=== PATIENT | female | born 1990 | race Caucasian/White ===

== ENCOUNTER 2017-01-31 22:10 | Day surgery (SDC) | payer OTHER ==
[2017-01-31 22:47] VITALS: BMI 25.7
--- NOTE | 2017-01-31 23:09 | PDOC.LDHP ---
Labor and Delivery H&P Chief complaint: abdominal pain HPI: 27 yo comes in with abdominal and pelvic pain. Says she was working today and went to reach for some glasses and states they were heavy. Started to get abdominal pain in the umbilical area. Also started to get sharp pain in her pelvic area. Took tylenol and the pain did not improve much. Was worried about baby, said she couldn't feel baby move with the pain. Current gestational age (weeks): 28 (1) Due date: 04/24/17 Dating criteria: last menstrual period Grav: 3 Para: 1 (1011) OB History Details: Prior Current complications: none Abnormal US findings: No (Bed side BPP 8/8, NST reactive, ) Current medications: pre-ina vitamins Previous surgical history: low tranverse CS Social history: none - Physical Exam Vital signs reviewed and normal: yes General: NAD Heart: RRR Lungs: nonlabored breathing Abdomen: other (Mildly tender to palpatin in RUQ, LUQ) Extremeties: no edema FHT: category 1 [place] contractions every: none - OB Labs Blood type: A RH: positive Antibody Screen: negative HIV: negative RPR: negative HEPSAg: negative GBS: unknown Urine drug screen: not done Rubella: non-immune - Assessment Strained muscle and Round ligament pain -Give 1000 mg of tylenol and hydroxizine. -FHT baseline 145. NST reactive -AMELIE 7.5. Bedside BPP 8/8. Good movement. Reassured mom likely muskoskeltal pain in nature -Recommend to continue taking Tylenol and avoid strenuous movements - Plan Plan: other (Discharge home) <Keron Garcia - Last Filed: 01/31/17 23:26> <Mami Shaffer - Last Filed: 02/01/17 16:03> Allergies/Adverse Reactions: Allergies Allergy/AdvReac Type Severity Reaction Status Date / Time No Known Drug Allergies Allergy Verified 01/31/17 22:48 Attending Addendum - Attending Addendum I personally discussed the management with Dr. Garcia and Dr. Puentes I agree with the History, Examination, Assessment and Plan documented above with any addition or exceptions noted below. MSK pain. Precautions discussed. Patient reassured with bedside sono. Borderline AMELIE. Would repeat in clinic. Anne <Mami Shaffer - Last Filed: 02/01/17 16:03>
[2017-01-31] MEDS ORDERED: hydrOXYzine Pamoate 25 mg Capsule PO SCH (23:15)
[2017-01-31] MEDS ORDERED: Acetaminophen 500 MG TAB PO SCH (23:15)
[2017-02-01] MEDS ORDERED: FLU VACC QS2017-18 36 mo. & older 0.5 ML SYRINGE IM ONE (09:00)
== END 2017-01-31 23:35 | disposition home or self-care (01) ==
LOC: L&D/OP 22:10
PROVIDERS: ATTEND Student in an Organized Health Care Education/Training Program
DX: O99.89 Other specified diseases and conditions complicating pregnancy, childbirth and the puerperium (principal); R10.2 Pelvic and perineal pain; Z79.899 Other long term (current) drug therapy; Z3A.28 28 weeks gestation of pregnancy; Z98.891 History of uterine scar from previous surgery
CPT/HCPCS: 76815; Q0177

== ENCOUNTER 2017-02-11 18:22 | Observation (INO) | payer OTHER ==
[2017-02-11 19:20] VITALS: BMI 26.7
[2017-02-11] MEDS ORDERED: traMADol HCl 50 MG TAB PO SCH (20:45)
[2017-02-11 21:39] LABS: #Eosinphils 0.1 thou/uL (0.0-0.7); #Lymphocytes 2.8 thou/uL (1.20-3.40); #Monocytes 0.6 thou/uL (0.11-0.59); #Neutrophils 11.6 thou/uL (1.40-6.50); %Basophils 0.3 % (0.0-1.0); %Eosinophils 0.6 % (0.0-10.0); %Lymphocytes 18.3 % (21.0-51.0); %Monocytes 3.8 % (0.0-10.0); Hematocrit 35.9 % (36.0-47.0); Mean Platelet Volume 6.9 fL (7.4-10.4); Red Blood Cell (RBC) Count 3.85 mill/uL (4.20-5.40)
[2017-02-11 22:01] LABS: ALT (SGPT) 16 U/L (8-55); AST (SGOT) 16 U/L (5-34); Alkaline Phosphatase 96 U/L (40-150); Anion Gap 17 mmol/L (10-20); BUN (Urea Nitrogen) 5 mg/dL (7.0-18.7); Bilirubin, Total 0.2 mg/dL (0.2-1.2); Calc. Creatinine Clearance 172 mL/min (70-130); Calcium 8.9 mg/dL (7.8-10.44); Carbon Dioxide 18 mmol/L (22-29); Chloride 107 mmol/L (98-107); Estimated GFR-MDRD Greater than 90; Globulin 3.4 g/dL (2.4-3.5); Protein, Total 6.9 g/dL (6.0-8.3)
[2017-02-11 22:20] LABS: Bilirubin Negative (Negative); Blood, Urine Negative (Negative); Glucose, Urine (Dipstick) Negative (Negative); Ketone, Urine Trace mg/dL (Negative); Nitrite Negative (Negative); Protein, Urine (Dipstick) Negative (Neg-Trace); Urobilinogen 0.2 mg/dL (0.2-1.0)
[2017-02-11 22:22] LABS: Bacteria/HPF None Seen HPF (None Seen); Hyaline Casts/LPF 0-3 HYALINE CAST LPF (0-3 Hyaline); RBC/HPF 0-3 HPF (0-3); Squamous Epithelial 0-3 HPF (0-3); WBC/HPF 0-3 HPF (0-3)
--- NOTE | 2017-02-11 23:39 | ULT ---
ABDOMINAL ULTRASOUND 02/11/17 INDICATION: patient with pain. TECHNIQUE: Khoury-scale ultrasound evaluation of the liver, gallbladder, spleen, pancreas, common bile duct, kidn eys, abdominal aorta, and inferior vena cava (IVC). FINDINGS: No acute gallbladder pathology. Imaged portions of the liver are unremarkable. There is no hydroneph rosis of the kidneys. Spleen is unremarkable. Within the low abdomen at reported site of patient's p ain, the underlying uterus reveals a thin linear lesion of decreased echogenicity demonstrating sono graphic appearance of edema within the uterine wall. This is of indeterminate etiology. IMPRESSION: 1. Thin linear hypoechoic region of the uterine wall indicative of edema of indeterminate etiol ogy. Recommend clinical correlation in this regard and as necessary imaging followup may be obtained . 2. No acute gallbladder pathology. POS: [facility]
[2017-02-12] MEDS ORDERED: Ondansetron HCl/PF 4 MG/2 ML Vial IVP PRN (01:25)
[2017-02-12] MEDS: Lactated Ringer's 500 ML IV SCH ×3 (01:57→04:54)
[2017-02-12] MEDS: Lactated Ringer's 1,000 ML IV SCH ×2 (05:39→07:07)
[2017-02-12 06:07] VITALS: TEMP 98
--- NOTE | 2017-02-12 06:15 | PDOC.FM ---
- Subjective Subjective: at 29.5w presented with acute worsening of periumbilical pain and vaginal discharge. An area of edema is noted within uterine wall associated with abdominal pain. The significance of this is unknown. Today the reporting worsening pain. Has been given stadol for pain. FHT were wnl with no evident ctx, no longer hooked up to monitoring. Denies N/V, diarrhea, constipation , and fevers. Does report recent viral illness with fever, congestion, poor appetite, and some diarrhea. - Objective MAR Reviewed: Yes Vital Signs & Weight: Vital Signs (12 hours) Temp Pulse Resp BP 02/12/17 06:00 98.0 F 90 18 118/57 L 02/12/17 02:25 98.1 F 84 20 02/12/17 02:03 98.1 F 84 20 118/66 Weight Admit Weight 70.76 kg Weight 70.76 kg Result Diagrams: 02/11/17 21:25 02/11/17 21:25 Radiology: Abdominal U/S: no gallbladder pathology, thin layer of edema within the uterine wall of unknown significance. <Valeria Guzmán - Last Filed: 02/12/17 08:47> - Objective Vital Signs & Weight: Vital Signs (12 hours) Temp Pulse Resp BP 02/12/17 08:45 98.0 F 76 20 02/12/17 07:20 98.0 F 76 20 127/59 L 02/12/17 06:00 98.0 F 90 18 118/57 L 02/12/17 02:25 98.1 F 84 20 02/12/17 02:03 98.1 F 84 20 118/66 Weight Admit Weight 70.76 kg Weight 70.76 kg Result Diagrams: 02/12/17 11:35 02/11/17 21:25 <Rodolfo Lees - Last Filed: 02/12/17 13:00> Phys Exam - Physical Examination Lying awake in pain, not moving much. Respiratory: no wheezing, no rales, no rhonchi, clear to auscultation bilateral Cardiovascular: RRR, no significant murmur Gravid, tender to touch in periumbilical and R and L LQ, + heel jar + psoas sign Musculoskeletal: pulses present, edema present (trace) Neurological: non-focal Psychiatric: A&O x 3 Deviation from normal: anxious appearing, frequent crying Skin: no rash <Valeria Guzmán - Last Filed: 02/12/17 08:47> Dx/Plan (1) Abdominal pain affecting Code(s): O26.899 - [facility] RELATED CONDITIONS, UNSPECIFIED TRIMESTER; R10.9 - UNSPECIFIED ABDOMINAL PAIN Status: Acute Plan: Unsure of the cause of abdominal pain. Could be related to finding on U/S of edema within the uterus. - GC/C negative - VP3 negative - abdominal u/s without evidence of appendicitis or gallbladder pathology - consider MRI to r/o more serious cause such as appendicitis. - continue pain medication and fluid hydration. (2) Status: Acute Plan: Plan for expectant management at this time. No concerns at this time. <Valeria Guzmán - Last Filed: 02/12/17 08:47> Attending Addendum - Attending Addendum I personally evaluated the patient and discussed the management with Drs. Guzmán and Javon. I agree with the History, Examination, Assessment and Plan documented above with any addition or exceptions noted below. S: Ms. Leslie was seen at approx 09:45 am. She relates that her pain is located just above and below the umbilicus. 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 In the past 4 days it is worse and has become severe to 11/10 on admission but after having Stadol 30 min prior to my exam it is 7.5. She is Very worried about the pain and concerned that there is something wrong, that her fetus may also be experiencing similar pain, and that although the doctors have offered possible explanations she has not been told exactly what the pain is caused by. She endorses being under financial and personal stress, but beleives she is overall in a good relationship with her fiance, and denies feeling depressed, hopeless or helpless. Does have some difficulty with worry and sleep. Has continued to work until she had to leave work yesterday due to the pain. Pain is worse with movement such as getting up from lying to sitting and with walking. Denies dysuria, did have some pink tinge when she wiped yesterday after having the cath specimen drawn. No fever. No hx of abdominal injury. No N,V, Diarrhea. O: VS Stable/normal. Alert Oriented x 4. Lungs: CTA, Cor: RRR, no murmur. Abdomen: gravid. External monitors in place just above and below/over the umbilicus, and do not appear to be bothering her. She occasionally presses over the tender area showing where she hurts without causing apparent pain to herself. Bowel sounds are present. No rash, erythema, or lesions noted. She has moderate to exquisite tenderness over the entire periumbilical area. She endorses periumbilical pain with testing pelvic shake, ileopsoas, internal obturator and heel tap signs. No CVATenderness. Lab: CBC WNL. WBC 34144 yesterday down to 11,400 today. ESR 25, UA -WNL. Sonogram of Abdomen Normal GB, Liver, and Bilateral kidneys. Ob Sono normal WNL. There is a linear sonolucent/hypoechogenic area in the anterior uterine wall described as possibly consistent with edema. 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 I have requested the resident staff to formally consult Ob/Laborist, Dr. Marcial, for second opinion and to obtain an MRI to evaluate abdomen, abdominal wall and prior uterine incision for any concerns. She expressed anxiety about being claustrophobic and having difficulty the prior abdominal MRI she had done 3 months ago due to the claustrophobia. We will premedicate with diphenhydramine. In view of the otherwise essentially normal findings and pending the results of her MRI and Ob consult I am hopeful that with reassurance, rest, avoiding bending, twisting, stooping and lifting, and being off work for a week or so she may improve and have adequate pain control. I have discussed the case with Drs. Guzmán, and Javon, and with Dr. Josafat Lima who is faculty attending biofuels plant operations engineer this afternoon. [facility] <Rodolfo Lees - Last Filed: 02/12/17 13:00>
[2017-02-12 07:27] VITALS: BP 127/59
[2017-02-12] MEDS ORDERED: FLU VACC QS2017-18 36 mo. & older 0.5 ML SYRINGE IM ONE (09:00)
[2017-02-12] MEDS ORDERED: diphenhydrAMINE 12.5 MG/5 ML UDCUP PO SCH (10:30)
[2017-02-12 11:42] LABS: #Eosinphils 0.1 thou/uL (0.0-0.7); #Lymphocytes 2.1 thou/uL (1.20-3.40); #Monocytes 0.4 thou/uL (0.11-0.59); #Neutrophils 8.9 thou/uL (1.40-6.50); %Basophils 0.1 % (0.0-1.0); %Eosinophils 0.6 % (0.0-10.0); %Lymphocytes 18.2 % (21.0-51.0); %Monocytes 3.3 % (0.0-10.0); Hematocrit 33.8 % (36.0-47.0); Mean Platelet Volume 7.1 fL (7.4-10.4); Red Blood Cell (RBC) Count 3.56 mill/uL (4.20-5.40); White Blood Cell (WBC) Count 11.4 thou/uL (4.8-10.8)
--- NOTE | 2017-02-12 12:48 | PDOC.APC ---
Antepartum Consult OBGYN CONSULT Date seen: 02/12/17, consult complete at 1300: Location: [facility]. Requesting MD: FM program (Jennifer Guzmán, with FM). Reason for consult: 25 week LAP, NOS. HPI: GWYN DE LA CRUZ is a 27 year old female at [25] gestational weeks and 5 days. She is a at 25 weeks 5 days who is being cared for by the family medicine residents for a complaint of umbilical pain. She was also seen with this November with a negative workup. That included an MRI. She had similar symptoms in January again with negative workup. She states that she has continued abdominal pain now worse for the last three days. OBGYN has been asked to see the patient for evaluation. Allergy: none Past surgeries: C section x1 Physical exam: patient currently in MRI so deferred. FHTs were normal last check. Cervix: per FM team. Laboratory data: initial WBC 15 now 11, CMP normal. Pelvic ultrasound unremarkable. Impression: 25 week and 5 days prior C section x1 with non specific abdominal discomfort. No evidence abruption or compromise. MRI pending. Plan: 1. No evidence of pre term labor at this time. 2. Clinical suspicion for APPY is low. Continue to follow for now. 3. Possible prior section adhesion causing discomfort. 4. Case D/W DR Guzmán in person.
--- NOTE | 2017-02-12 13:21 | MRI ---
MRI OF THE ABDOMEN: Comparison: 11-28-16, abdominal ultrasound 02-11-17, 11-27-16 History: Periumbilical abdominal pain and tenderness in a female. Possible uterine wall abn ormality seen on prior ultrasound. Technique: Multiplanar, multisequence MR images were obtained of the abdomen without contrast. FINDINGS: A fetus is seen within the uterus in cephalic presentation. No obvious anomaly is identified. The placenta is along the right posterolateral aspect of the uterus and extends up to the fundus. Th ere is no evidence of placenta previa. The uterine wall demonstrates normal signal intensity without evidence of uterine wall thinning or dehiscense. Both ovaries are normal in appearance and have small follicles. The previously seen T2 signal along the right axis of the uterus likely represented a follicle within the patient's right ovary. The amanda endix is displaced above the uterus and is normal in appearance without surrounding high T2 signal t o suggest acute appendicitis. No pelvic adenopathy is seen. No marrow signal abnormality is present. IMPRESSION: 1. No evidence of acute appendicitis. 2. No evidence of uterine wall thinning or dehiscense. POS: [facility]
--- NOTE | 2017-02-12 13:38 | PDOC.APC ---
Antepartum Consult 02/12/17 at 1330: CONSULT CORRECTION: GWYN DE LA CRUZ is a 27 year old female at [29 W 6D] gestational weeks. This is a corrected report. Patient back from MRI. Patient seen by me with MD Arielle in room. PE: I examined the patient at 1330..cervix is closed/thick/high station. No VB or ROM noted. NST just started again. Positive accel with exam. CORRECTION: Patient at 29 weeks and 5 days, not 25 weeks and 5 days as previously written. I was informed earlier that her EGA was 25 weeks, but now see that she is 29 weeks 6 days. Impression/Plan: 29 weeks 6 days, LAP NOS. 1. BPP sono 2. No evidence of labor 3. Await MRI.
--- NOTE | 2017-02-12 14:34 | PDOC.EVN ---
Event Note - Event Note Event Note: MRI negative. BPP 09/11, -2 for breathing. NST reactive. Overall, 11/13. Plan to manage pain outpatient. Likely related to adhesive disease from prior C- section. <Dee Aguayo - Last Filed: 02/12/17 14:31> - Event Note Event Note: 02/12/17 at 1430: FACULTY NOTE: MRI without abnormalities. No evidence appy or gross uterine disease. NST reactive, makes the total BPP 11/13. As no evidence of PTL, abruption, or infectious etiology, SC for outpatient care. D/W residents. <Stefano Marcial - Last Filed: 02/12/17 14:38>
[2017-02-12] MEDS ORDERED: Acetaminophen 500 MG TAB PO PRN (14:36)
[2017-02-12] MEDS ORDERED: Acetaminophen 500 MG TAB PO SCH (14:45)
--- NOTE | 2017-02-12 17:23 | ULT ---
LIMITED OBSTETRICAL ULTRASOUND 02/12/17 INDICATION: Biophysical profile; maternal abdominal pain. FINDINGS: There is a single live intrauterine gestation in vertex presentation. Cardiac activity is noted at 1 33 beats per minute. Placenta is posterior and fundal in location without evidence of previa. AMELIE is noted at 12.3. The visualized bladder, three vessel cord, and heart appear within normal limits. The average gestat ional age by ultrasound is 29 weeks, 6 days. Estimated due date 04/24/17. The biophysical profile was 6 out of 8 with 0 out of 2 reported for breathing by the technicia ac. IMPRESSION: Biophysical profile score is 6 out of 8. Findings were reported by Dr. Marcial by the home theatre technician at the time of the exam. POS: [facility]
--- NOTE | 2017-02-13 12:36 | DIS-2 ---
ADMISSION DATE: 02/11/2017 DISCHARGE DATE: 02/12/2017 RESIDENT: Dr. Valeria Guzmán. ADMITTING ATTENDING: Dr. Rodolfo Lees. DISCHARGE ATTENDING: Dr. Rodolfo Lees. CONSULTATIONS: Dr. Stefano Marcial, OB-CORPORATE CONSULTANT. PROCEDURES: 1. Abdominal ultrasound, which revealed a thin linear hypoechoic region of the uterine wall indicat patrick of edema of indeterminate etiology with normal appearing gallbladder pathology, normal tilt appe aring kidneys and spleen. 2. Abdominal MRI, which revealed no evidence of acute appendicitis and no evidence of uterine wall thinning or dehiscence. 3. A biophysical profile ultrasound, which was 09/11, -2 for breathing. PRIMARY DIAGNOSIS: Musculoskeletal adhesive disease. SECONDARY DIAGNOSIS: Anxiety. DISCHARGE MEDICATIONS: 1. Tylenol 650 mg q.8 hours p.r.n. pain. 2. vitamins. DISCONTINUED MEDICATIONS: None. HISTORY OF PRESENT ILLNESS AND HOSPITAL COURSE: Patient is a 27-year-old G3, P1-0-1-1 at 29 and 5 w eeks by LMP, consistent with a first trimester ultrasound, who came to the ED for periumbilical abdo issac pain onset three weeks ago, but recently worsened within the last 3 days rating her pain at 10 /10. Patient exam revealed some acute abdomen findings, although patient was very anxious and that may have contributed to interpretation of pain. An ultrasound was performed, which revealed a thin layer of edema in the uterine wall of indeterminate significance in the area of her reported pain. An abdominal MRI was done to evaluate for appendicitis, a uterine dehiscence and abdominal wall path ology, which was negative except for those mentioned above. Patient has a prior history of C-sectio n and it is thought that with her describing the pain as a ripping or stretching sensation, most lik brianna cause of her pain is adhesive disease from prior . Labs on this admission were within normal limits including a CBC, CMP, UA and chlamydia and gonorrhea. Patient had reported slight pin k discharge along with the abdominal pain as mentioned above. Chlamydia and gonorrhea were negative . Also, patient was checked for cervical dilation and was found to be closed. No contractions pick ed up on tocolytics or tocometer. Patient was very anxious and tearful throughout her stay and each conversation and it is thought that likely level of anxiety is compounding her pain. After all lab work was found to be negative as well as imaging and well being was established via BPP and N ST and continuous heart monitoring. DISPOSITION: Patient was discharged home in stable condition with close followup. DISCHARGE INSTRUCTIONS: 1. Location: Home. 2. Diet: Regular. 3. Activity: As tolerated. 4. Follow up with Dae Camilo M.D. in one day.
== END 2017-02-12 16:42 | disposition home or self-care (01) ==
LOC: L&D/OP 18:22 → L&D 02-12 02:15
PROVIDERS: ADMIT Family Medicine; ATTEND Family Medicine
DX: O99.89 Other specified diseases and conditions complicating pregnancy, childbirth and the puerperium (principal); N73.6 Female pelvic peritoneal adhesions (postinfective); O99.343 Other mental disorders complicating pregnancy, third trimester; F41.9 Anxiety disorder, unspecified; Z3A.29 29 weeks gestation of pregnancy; Z79.899 Other long term (current) drug therapy; Z98.890 Other specified postprocedural states; Z87.891 Personal history of nicotine dependence
CPT/HCPCS: 74181; 76700; 76815; 76819; 80053; 81001; 85025; 85652; 87480; 87491; 87510; 87591; 87660; 96360; 96361; 96372; G0378; J0595

== ENCOUNTER 2017-04-03 17:18 | Day surgery (SDC) | payer OTHER ==
[2017-04-03 18:03] VITALS: BMI 37.3
[2017-04-03 18:04] VITALS: BP 134/76; TEMP 99.2
[2017-04-03 19:09] LABS: #Lymphocytes 2.1 thou/uL (1.20-3.40); #Monocytes 0.6 thou/uL (0.11-0.59); #Neutrophils 10.2 thou/uL (1.40-6.50); %Basophils 0.1 % (0.0-1.0); %Eosinophils 0.3 % (0.0-10.0); %Lymphocytes 16.1 % (21.0-51.0); %Monocytes 4.9 % (0.0-10.0); %Neutrophils 78.6 % (42.0-75.0); Hemoglobin 12.3 g/dL (12.0-16.0); Mean Corpuscular HGB CONC 34.1 g/dL (32.0-36.0); Mean Corpuscular Hemoglobin 31.8 pg (27.0-31.0); Mean Corpuscular Volume 93.3 fl (81.0-99.0); Mean Platelet Volume 7.8 fL (7.4-10.4); Platelet Count 154 thou/uL (130-400); RBC Distribution Width 12.5 % (11.5-14.5); Red Blood Cell (RBC) Count 3.86 mill/uL (4.20-5.40)
[2017-04-03 19:25] LABS: ALT (SGPT) 8 U/L (8-55); AST (SGOT) 13 U/L (5-34); Albumin 3.5 g/dL (3.5-5.0); Alkaline Phosphatase 121 U/L (40-150); Anion Gap 13 mmol/L (10-20); BUN (Urea Nitrogen) 6 mg/dL (7.0-18.7); Bilirubin, Total 0.2 mg/dL (0.2-1.2); Calc. Creatinine Clearance 241 mL/min (70-130); Calcium 9.3 mg/dL (7.8-10.44); Carbon Dioxide 20 mmol/L (22-29); Chloride 108 mmol/L (98-107); Estimated GFR-MDRD Greater than 90; Globulin 3.1 g/dL (2.4-3.5); Glucose 78 mg/dL (70-105); LDH 154 U/L (125-220); Potassium 3.6 mmol/L (3.5-5.1); Protein, Total 6.6 g/dL (6.0-8.3); Sodium 137 mmol/L (136-145); Uric Acid 3.4 mg/dL (2.6-6.0)
[2017-04-03 19:59] LABS: Creatinine, Urine 26.65 mg/dL (47-110); Protein, Urine Random Quant Less than 10 mg/dL
--- NOTE | 2017-04-03 20:58 | PDOC.EVN ---
Event Note - Event Note Event Note: Attending H&P I personally evaluated the patient and discussed the management with Dr. Silverio. I agree with the History, Examination, Assessment and Plan documented above with any addition or exceptions noted below. Pre-eclampsia workup is negative.
[2017-04-04] MEDS ORDERED: FLU VACC QS2017-18 36 mo. & older 0.5 ML SYRINGE IM ONE (09:00)
== END 2017-04-03 20:54 | disposition home or self-care (01) ==
LOC: L&D/OP 17:18
PROVIDERS: ATTEND Family Medicine
DX: O13.3 Gestational [pregnancy-induced] hypertension without significant proteinuria, third trimester (principal); O26.03 Excessive weight gain in pregnancy, third trimester; Z3A.36 36 weeks gestation of pregnancy; Z79.899 Other long term (current) drug therapy; Z98.890 Other specified postprocedural states; Z87.891 Personal history of nicotine dependence
CPT/HCPCS: 36415; 80053; 82570; 83615; 84156; 84550; 85025; 99283

== ENCOUNTER 2017-04-05 20:42 | Day surgery (SDC) | payer OTHER ==
[2017-04-05 21:12] VITALS: BMI 36.8
--- NOTE | 2017-04-05 22:35 | PDOC.LDHP ---
Labor and Delivery H&P Chief complaint: other HPI: Patient is a 27yo at 37.2 by 6.0w u/s with recent hx of elevated pressures and negative PreE workup. This evening patient reports 3 pressures greater than 140 systolic at home and new onset GOULD since noon today that has not been responsive to extra strength tylenol. +FM, no LOF, no ctx, no VB. Patient denies abdominal pain. Patient reports blurred vision. Current gestational age (weeks): 37 (37.2) Due date: 04/24/16 Dating criteria: first trimester ultrasound Grav: 3 Para: 1 OB History Details: Csx x1 for failure to progress. Current complications: none Abnormal US findings: No Current medications: pre-ina vitamins, other (Dulcolax, topical psoriasis medication) Previous surgical history: low tranverse CS Social history: none - Physical Exam Vital signs reviewed and normal: yes Abnormal vital signs: isolated BP 143/86 General: NAD Heart: RRR Lungs: CTAB Abdomen: NTTP Extremeties: trace edema FHT: category 1 [place] contractions every: none - OB Labs Blood type: A RH: positive Antibody Screen: negative HIV: negative RPR: negative HEPSAg: negative 1 hour GCT: negative GBS: negative Rubella: immune - Assessment Elevated Blood pressure - r/o preeclampsia with CBC, CMP, urine protein and creatinine - monitor vs - patient has already had 3g tylenol today, will give Fioricet for pain - no signs of labor - likely d/c home if labs negative. - Plan Plan: observation in L&D <Valeria Guzmán - Last Filed: 04/05/17 22:33> <Lowell Givens - Last Filed: 04/06/17 00:20> Allergies/Adverse Reactions: Allergies Allergy/AdvReac Type Severity Reaction Status Date / Time No Known Drug Allergies Allergy Verified 01/31/17 22:48 Attending Addendum - Attending Addendum I personally evaluated the patient and discussed the management with the resident team. I agree with and repeated the History, Examination, Assessment and Plan documented above with any addition or exceptions noted below. Tension type headache for today, band/vice like. Not unilateral/throbbing. She is unsure if she has any scotoma/spots, although denies anything recently. No KAREN/RUQ pain. Exam unremarkable, NAD, CTAB, RRR, minimal edema, DTRs 2+ without clonus. Labs negative for preE workup. Fioricet with improvement and patient wishes to go home. Discussed OBT warnings. Ok for discharge with follow up next week. <Lowell Givens - Last Filed: 04/06/17 00:20>
[2017-04-05 22:48] LABS: #Eosinphils 0.1 thou/uL (0.0-0.7); #Lymphocytes 2.1 thou/uL (1.20-3.40); #Monocytes 0.8 thou/uL (0.11-0.59); #Neutrophils 8.2 thou/uL (1.40-6.50); %Basophils 0.2 % (0.0-1.0); %Eosinophils 0.7 % (0.0-10.0); %Neutrophils 73.1 % (42.0-75.0); Hemoglobin 12.4 g/dL (12.0-16.0); Mean Corpuscular HGB CONC 33.8 g/dL (32.0-36.0); Mean Corpuscular Hemoglobin 31.6 pg (27.0-31.0); Mean Corpuscular Volume 93.6 fl (81.0-99.0); Mean Platelet Volume 7.5 fL (7.4-10.4); Platelet Count 152 thou/uL (130-400); RBC Distribution Width 12.7 % (11.5-14.5); Red Blood Cell (RBC) Count 3.92 mill/uL (4.20-5.40); White Blood Cell (WBC) Count 11.2 thou/uL (4.8-10.8)
[2017-04-05] MEDS ORDERED: Fioricet 325/50/40 mg Tablet PO SCH (22:54)
[2017-04-05 23:01] LABS: Creatinine, Urine 30.21 mg/dL (47-110); Protein, Urine Random Quant Less than 10 mg/dL
[2017-04-05 23:09] LABS: ALT (SGPT) 8 U/L (8-55); AST (SGOT) 11 U/L (5-34); Albumin 3.3 g/dL (3.5-5.0); Alkaline Phosphatase 119 U/L (40-150); Anion Gap 12 mmol/L (10-20); BUN (Urea Nitrogen) 7 mg/dL (7.0-18.7); Bilirubin, Total 0.2 mg/dL (0.2-1.2); Calc. Creatinine Clearance 233 mL/min (70-130); Carbon Dioxide 18 mmol/L (22-29); Chloride 109 mmol/L (98-107); Estimated GFR-MDRD Greater than 90; Globulin 3.1 g/dL (2.4-3.5); Glucose 96 mg/dL (70-105); Potassium 3.8 mmol/L (3.5-5.1); Protein, Total 6.4 g/dL (6.0-8.3); Sodium 135 mmol/L (136-145)
[2017-04-06] MEDS ORDERED: FLU VACC QS2017-18 36 mo. & older 0.5 ML SYRINGE IM ONE (09:00)
== END 2017-04-06 00:54 | disposition home or self-care (01) ==
LOC: L&D/OP 20:42
PROVIDERS: ATTEND Family Medicine
DX: O99.89 Other specified diseases and conditions complicating pregnancy, childbirth and the puerperium (principal); R03.0 Elevated blood-pressure reading, without diagnosis of hypertension; Z3A.37 37 weeks gestation of pregnancy; Z79.899 Other long term (current) drug therapy; Z98.890 Other specified postprocedural states; Z87.891 Personal history of nicotine dependence
CPT/HCPCS: 36415; 80053; 82570; 84156; 85025; 99284

== ENCOUNTER 2017-04-20 05:39 | Inpatient (IN) | payer OTHER ==
[2017-04-20 06:09] VITALS: BMI 35.6
[2017-04-20] MEDS: Lactated Ringer's 1,000 ML IV SCH ×3 (06:15→13:15)
[2017-04-20] MEDS ORDERED: Promethazine HCl 25 MG/ML VIAL IM PRN ×2 (06:28→07:44)
[2017-04-20] MEDS ORDERED: Acetaminophen 500 MG TAB PO PRN (06:28)
[2017-04-20] MEDS ORDERED: Ondansetron HCl/PF 4 MG/2 ML Vial IVP PRN ×3 (06:28→07:44)
[2017-04-20] MEDS ORDERED: Bicitra 30 ML UDCUP PO SCH (06:30)
[2017-04-20] MEDS ORDERED: CEFAZOLIN/Water 2 GM/20 ML SYRINGE SLOW IVP SCH (06:30)
[2017-04-20 06:37] LABS: Hemoglobin 12.9 g/dL (12.0-16.0); Mean Corpuscular Hemoglobin 31.3 pg (27.0-31.0); Mean Corpuscular Volume 91.9 fl (81.0-99.0); Mean Platelet Volume 7.6 fL (7.4-10.4); Platelet Count 168 thou/uL (130-400); RBC Distribution Width 12.9 % (11.5-14.5); Red Blood Cell (RBC) Count 4.13 mill/uL (4.20-5.40); White Blood Cell (WBC) Count 13.2 thou/uL (4.8-10.8)
--- NOTE | 2017-04-20 06:51 | PDOC.LDHP ---
Labor and Delivery H&P Chief complaint: scheduled section HPI: 27 yo female is here for repeat . Reports being a little bit anxious. Reports having mildly elevated blood pressures last night. Denies any headaches, abnormal swelling. Denies any changes in vision. Denies bleeding, loss of fluid or pain. Reports occasional contractions but there is no pattern. Current gestational age (weeks): 39 (3 days) Due date: 04/24/17 Dating criteria: last menstrual period, first trimester ultrasound Grav: 3 Para: 1 OB History Details: none Current complications: none Abnormal US findings: No Past Medical History: None Current medications: pre- vitamins Previous surgical history: low tranverse CS, other (Humerus repair) Allergies/Adverse Reactions: Allergies Allergy/AdvReac Type Severity Reaction Status Date / Time No Known Drug Allergies Allergy Verified 01/31/17 22:48 Social history: none - Physical Exam Vital signs reviewed and normal: yes General: NAD, resting Heart: RRR Lungs: nonlabored breathing Abdomen: NTTP Extremeties: no edema FHT: category 1, variability present - OB Labs Blood type: A RH: positive Antibody Screen: negative HIV: negative RPR: negative HEPSAg: negative 1 hour GCT: negative GBS: negative Urine drug screen: negative Rubella: immune - Assessment L&D Assessment: scheduled repeat section - Plan Plan: admit to L&D, to OR for section, observation in L&D, informed consent obtained, anesthesia consult for pain management -: 27 yo female here for Repeat . No complications. Anesthesia consulted. Initial labs drawn. Category 1 strip. Moderate variability. No other concerns or complications at this time.
[2017-04-20] MEDS ORDERED: PHENYLEPHRINE-NS 100 MCG/ML 10 ML SYRINGE ONE ×3 (07:12→14:18)
[2017-04-20] MEDS ORDERED: Ketorolac Tromethamine 30 MG/ML VIAL ONE ×2 (07:12→14:18)
[2017-04-20] MEDS ORDERED: Oxytocin 10 UNITS/ML VIAL ONE (07:12)
[2017-04-20] MEDS ORDERED: ePHEDrine/0.9% NaCl/PF SYRINGE 50 mg/10 ml ONE (07:12)
[2017-04-20] MEDS ORDERED: Dexamethasone 4 mg/ml Vial ONE (07:12)
[2017-04-20] MEDS ORDERED: Ondansetron HCl/PF 4 MG/2 ML Vial ONE ×2 (07:12→14:18)
[2017-04-20] MEDS ORDERED: Morphine PF 1 MG/ML SYR ONE (07:13)
[2017-04-20 07:27] LABS: HBSAg Index 0.12 S/CO (0-0.99); Hep B Surf Ag Non-Reactive S/CO (NonReactive)
[2017-04-20 07:28] LABS: Syphilis Antibody Nonreactive (Nonreactive); Syphilis Antibody Index 0.07 S/CO (<1.00 Non-Reactive)
[2017-04-20] MEDS ORDERED: diphenhydrAMINE 50 MG/ML VIAL IVP PRN (07:44)
[2017-04-20] MEDS ORDERED: Promethazine HCl 25 MG SUPP PR PRN (07:44)
[2017-04-20] MEDS ORDERED: Naloxone HCl 0.4 mg/ml Vial IV PRN (07:44)
[2017-04-20] MEDS ORDERED: HYDROmorphone 2 MG/ML VIAL SLOW IVP PRN (07:44)
[2017-04-20] MEDS ORDERED: Naloxone HCl 0.4 mg/ml Vial IVP PRN ×2 (07:44)
[2017-04-20] MEDS ORDERED: Eucerin (Mineral Oil/Petrolatum,White) 30 gm Jar TOP PRN (07:44)
[2017-04-20] MEDS ORDERED: Ketorolac Tromethamine 30 MG/ML VIAL IVP SCH (07:45)
[2017-04-20] MEDS ORDERED: Communication Order-Pharmacy FS SCH (07:45)
[2017-04-20] MEDS ORDERED: Fentanyl 100 MCG/2 ML VIAL ONE (08:20)
--- NOTE | 2017-04-20 09:58 | OP-2 ---
DATE OF PROCEDURE: 04/20/2017 RESIDENT SURGEON: Dae Camilo M.D. ERGONOMICS CONSULTANT SURGEON: Dee Aguayo M.D. ATTENDING SURGEON: Bret Lima M.D. PREOPERATIVE DIAGNOSES: 1. Term intrauterine at 39 weeks 3 days. 2. Previous . 3. Excessive weight gain during . POSTOPERATIVE DIAGNOSES: 1. Term intrauterine , delivered. 2. Viable female . 3. Repeat x1. 4. Excessive weight gain during . ANESTHESIA: Spinal. INDICATIONS: Ms. Carmen Leslie is a 27-year-old G3, P1-0-1-1 at 39 weeks and 3 days, presented for elective repeat . PROCEDURE IN DETAIL: Informed consent was obtained after risks, benefits, and alternatives were explained. Preoperative antibiotics Keflex 2 grams IV were given. The patient was taken to the operating room and spinal anesthesia was initiated. The patient was prepped and draped in the usual sterile fashion. A Pfannenstiel incision was made with scalpel and carried down to the level of the fascia which was sharply nicked. The fascia was extended bilaterally with Olguin scissors in a curvilinear fashion. The inferior and superior edges were elevated with Nel clamps and bluntly and sharply dissected away from the rectus muscle. The peritoneum was entered bluntly and retracted manually. Bladder blade was placed. Bladder flap was created with Metzenbaum scissors. Low transverse score was made with a clean scalpel. The uterus was entered bluntly with the amniotic sac intact. Amniotic sac was ruptured with Allis clamp and clear fluid was noted. The hysterotomy was extended manually in a caudal cranial fashion. Head was elevated from the hysterotomy and the infant was delivered easily with fundal pressure at 8:08 a.m. on 04/20/2017. Grossly normal viable female was noted. Cord was clamped and cut and was handed to the awaiting nursery team. Attention was then turned to the uterus. The placenta was manually extracted. The uterus was then curetted with a dry lap. Hysterotomy was closed using a #1 Monocryl suture in the running locking fashion. Hemostasis was noted after closure. The uterus was placed back in the abdomen and the hysterotomy was again inspected. The hysterotomy was noted to be hemostatic; however, the inferior edge of the bladder flap had a small bleeding vessel along the left edge. A iebowt-vx-vwfya suture using 3-0 chromic was placed along the bleeding edge. Additional bleeders were stopped with Bovie cautery. The hysterotomy was visualized a final time and noted to be hemostatic. Fascia was closed with a #1 Vicryl suture in the running nonlocking fashion. Subcutaneous tissue was closed with 3 simple interrupted sutures using 2-0 plain gut. Skin was closed using a running subcuticular 4-0 Monocryl suture. Dermabond was placed over the incision. Counts were correct x3. The patient tolerated the procedure well and was sent to after routine recovery and care. ESTIMATED BLOOD LOSS: 750 mL. COMPLICATIONS: None. SPECIMEN: Cord blood sent for blood type. FINDINGS: Grossly normal female infant born at 0808 hours on 04/20/2017 with Apgars of 9 and 9 at 1 and 5 minutes respectively. Grossly normal intact placenta with a 3-vessel cord. DRAINS: Bob catheter with clear urine. Dr. Bret Lima was present for the entire procedure. ADRIEL
[2017-04-20] MEDS ORDERED: Meperidine HCl/PF 25 MG/ML VIAL ONE ×2 (10:05→11:11)
[2017-04-20] MEDS: Meperidine HCl/PF 25 MG/ML VIAL SLOW IVP PRN ×2 (10:06→11:12)
[2017-04-20] MEDS ORDERED: HYDROmorphone 0.5 MG/0.5 ML SYRINGE SLOW IVP PRN (10:47)
[2017-04-20] MEDS ORDERED: Prenatal Vitamin 1 TAB PO SCH ×2 (11:24→11:45)
[2017-04-20] MEDS ORDERED: Lanolin Ointment 7 GM TUBE TOP PRN (11:24)
[2017-04-20] MEDS ORDERED: HYDROcodone/Acetaminophen 5/325 mg Tablet PO PRN ×3 (11:24→20:00)
[2017-04-20] MEDS ORDERED: Methylergonovine 0.2 MG/ML VIAL IM PRN (11:24)
[2017-04-20] MEDS ORDERED: Acetaminophen 1,000 MG in Premix Bag 1 BAG IVPB SCH (13:00)
[2017-04-20] MEDS ORDERED: Dexamethasone 20 MG/5 ML VIAL ONE (14:18)
[2017-04-20] MEDS: Ibuprofen 800 MG TAB PO SCH (14:20)
[2017-04-20] MEDS: Ketorolac Tromethamine 30 MG/ML VIAL IVP PRN ×2 (14:20→20:34)
[2017-04-20] MEDS: Morphine PF 1 MG/ML SYR IVP PRN ×4 (15:34→23:59)
[2017-04-20] MEDS: Simethicone Chewable 80 MG TAB PO PRN (17:16)
[2017-04-21] MEDS: HYDROcodone/Acetaminophen 5/325 mg Tablet PO PRN ×4 (00:31→12:52)
[2017-04-21] MEDS: Ibuprofen 800 MG TAB PO SCH ×4 (04:33→20:46)
[2017-04-21 05:34] LABS: Hemoglobin 11.4 g/dL (12.0-16.0); Mean Corpuscular HGB CONC 33.7 g/dL (32.0-36.0); Mean Corpuscular Hemoglobin 31.8 pg (27.0-31.0); Mean Corpuscular Volume 94.1 fl (81.0-99.0); Mean Platelet Volume 7.6 fL (7.4-10.4); Platelet Count 142 thou/uL (130-400); RBC Distribution Width 12.8 % (11.5-14.5); Red Blood Cell (RBC) Count 3.59 mill/uL (4.20-5.40); White Blood Cell (WBC) Count 12.6 thou/uL (4.8-10.8)
[2017-04-21] MEDS: Prenatal Vitamin 1 TAB PO SCH (08:59)
--- NOTE | 2017-04-21 09:08 | PDOC.PP ---
Post Progress Note Post Day #: 2 Subjective: Pain well controlled. Eating small amounts. has not tried walking yet. Reports small rash on right ring finger. States she has history of shingles but denies neuropathy. PO intake tolerated: yes Flatus: yes Ambulation: no Vital Signs (12 hours) Temp Pulse Resp BP 04/21/17 07:59 98.1 F 75 20 119/56 L 04/21/17 07:45 98.1 F 75 20 04/21/17 04:30 98.1 F 74 18 127/61 04/21/17 04:00 98.3 F 78 20 04/21/17 01:15 98.8 F 80 18 131/62 04/21/17 00:15 98.3 F 78 20 Weight Weight 94.347 kg - Physical Examination General: NAD Cardiovascular: no m/r/g, RRR Respiratory: clear to auscultation bilaterally, non-labored breathing Abdominal: + bowel sounds, lochia, no distention, appropriately TTP Fundus firm & at: umbilicus Extremities: negative homans (B) Skin: CS incision dry & intact Deviation from normal: small rash on distal right 4th digit. dorsal aspect. uticarial, no drainage Neurological: no gross focal deficits Psychiatric: A&Ox3, normal affect Result Diagrams: 04/21/17 05:16 Additional Labs: Post Labs Blood Type A POSITIVE 04/20/17 06:18 Hep Bs Antigen Non-Reactive S/CO (NonReactive) 04/20/17 06:18 (1) Status post repeat low transverse section Code(s): Z98.891 - HISTORY OF UTERINE SCAR FROM PREVIOUS SURGERY Status: Acute Comment: Post op day 1. delivered at 39.3 wk via elective repeat LTCS. pain now well controlled. Plan to remove quinn today and encourage ambulation. VSS. appropriate decrease in H&H. continue expectant management. (2) Status: Acute QualifierTitle: Weeks of gestation: 39 weeks Qualified Code(s): Z3A.39 - 39 weeks gestation of (3) Rash and nonspecific skin eruption Code(s): R21 - RASH AND OTHER NONSPECIFIC SKIN ERUPTION Status: Acute Comment: history of shingles but no neuropathic symptoms. will continue to monitor. consistent with contact dermatitis. <Dae Camilo - Last Filed: 04/21/17 09:07> Vital Signs (12 hours) Temp Pulse Resp BP 04/21/17 11:39 98.2 F 72 18 121/69 04/21/17 07:59 98.1 F 75 20 119/56 L 04/21/17 07:45 98.1 F 75 20 04/21/17 04:30 98.1 F 74 18 127/61 04/21/17 04:00 98.3 F 78 20 04/21/17 01:15 98.8 F 80 18 131/62 04/21/17 00:15 98.3 F 78 20 Weight Weight 94.347 kg Result Diagrams: 04/21/17 05:16 Additional Labs: Post Labs Blood Type A POSITIVE 04/20/17 06:18 Hep Bs Antigen Non-Reactive S/CO (NonReactive) 04/20/17 06:18 <Bret Lima - Last Filed: 04/21/17 11:42> Attending Addendum - Attending Addendum I personally evaluated the patient and discussed the management with Dr. Camilo. I agree with the History, Examination, Assessment and Plan documented above with any addition or exceptions noted below. <Bret Lima - Last Filed: 04/21/17 11:42>
[2017-04-21] MEDS ORDERED: HYDROcodone/Acetaminophen 5/325 mg Tablet PO PRN (15:01)
[2017-04-21] MEDS ORDERED: Ketorolac Tromethamine 30 MG/ML VIAL IVP SCH (17:45)
[2017-04-21] MEDS ORDERED: HYDROcodone/Acetaminophen 5/325 mg Tablet PO SCH ×2 (18:00→20:30)
[2017-04-21] MEDS ORDERED: Acyclovir 800 mg Tablet PO SCH (20:30)
[2017-04-21] MEDS: Simethicone Chewable 80 MG TAB PO PRN (20:49)
--- NOTE | 2017-04-21 22:02 | PDOC.EVN ---
Event Note - Event Note Event Note: Patient complained on rash on R ring finger. I went to look at it and it appears vesicular with an erythematous base consistent with localized Varicella Zoster vs Herpes Simplex Virus, currently suspect Varicella Zoster. Will treat with Acyclovir. Spoke to Dr. Hoskins with neonatology and he recommended to cover the lesions with bandaid and then glove and that it would be okay in that case for the to be in the room and to continue to breastfeed. He said there was no indication for the Varicella immunoglobulin at this time. The Infection Control Handbook for the hospital was consistent with the recommendation to cover the lesions and use standard precautions. Will consider culturing the lesions in the morning to confirm the organism. Will watch the closely. <Jana Kenyon - Last Filed: 04/21/17 21:55> - Event Note Event Note: Attending addendum: I saw and examined the patient and agree with the above plan. <Lowell Givens - Last Filed: 04/21/17 23:10>
[2017-04-22] MEDS ORDERED: HYDROcodone/Acetaminophen 10/325 mg Tablet PO SCH (03:00)
[2017-04-22] MEDS: Acyclovir 800 mg Tablet PO SCH ×3 (03:10→13:14)
[2017-04-22] MEDS: Ibuprofen 800 MG TAB PO SCH ×2 (06:10→13:13)
[2017-04-22 08:01] VITALS: BP 114/59; TEMP 98.2
[2017-04-22] MEDS: HYDROcodone/Acetaminophen 5/325 mg Tablet PO PRN ×2 (08:51→13:13)
[2017-04-22] MEDS: Prenatal Vitamin 1 TAB PO SCH (08:51)
--- NOTE | 2017-04-22 08:51 | PDOC.PP ---
Post Progress Note Post Day #: 2 Subjective: Patient had upsetting night with pain and new onset rash. Feeling better this morning. Pain controlled. Stressed importance of performing tasks in short intervals with time to rest between. Breast feeding well. PO intake tolerated: yes Flatus: yes Ambulation: yes Vital Signs (12 hours) Temp Pulse Resp BP 04/22/17 08:01 98.2 F 81 20 114/59 L 04/22/17 00:30 98.7 F 68 20 131/81 04/21/17 20:50 98.4 F 88 20 123/73 Weight Weight 94.347 kg - Physical Examination General: NAD Cardiovascular: no m/r/g, RRR Respiratory: clear to auscultation bilaterally, non-labored breathing Abdominal: + bowel sounds, lochia, no distention, appropriately TTP Fundus firm & at: umbilicus Extremities: negative homans (B) Skin: CS incision dry & intact Deviation from normal: herpatic appearing rash on right ring finger. covered with bandaid/glove Neurological: no gross focal deficits Psychiatric: A&Ox3, normal affect Result Diagrams: 04/21/17 05:16 Additional Labs: Post Labs Blood Type A POSITIVE 04/20/17 06:18 Hep Bs Antigen Non-Reactive S/CO (NonReactive) 04/20/17 06:18 (1) Status post repeat low transverse section Code(s): Z98.891 - HISTORY OF UTERINE SCAR FROM PREVIOUS SURGERY Status: Acute Comment: Post op day 2. delivered at 39.3 wk via elective repeat LTCS. pain now well controlled. Encourage ambulation. VSS. appropriate decrease in H&H. continue expectant management. provided counseling on appropriate level/interval of activity. (2) Status: Acute QualifierTitle: Weeks of gestation: 39 weeks Qualified Code(s): Z3A.39 - 39 weeks gestation of (3) Herpes zoster Code(s): B02.9 - ZOSTER WITHOUT COMPLICATIONS Status: Acute QualifierTitle: Herpes zoster complications: without complications Qualified Code(s): B02.9 - Zoster without complications Comment: started on acyclovir 800 mg 5 times daily. Needs 5 day course. keep hand covered. continue breast feeding. <Dae Camilo - Last Filed: 04/22/17 08:47> Vital Signs (12 hours) Temp Pulse Resp BP 04/22/17 08:10 98.2 F 81 20 04/22/17 08:01 98.2 F 81 20 114/59 L Weight Weight 94.347 kg Result Diagrams: 04/21/17 05:16 Additional Labs: Post Labs Blood Type A POSITIVE 04/20/17 06:18 Hep Bs Antigen Non-Reactive S/CO (NonReactive) 04/20/17 06:18 <Bret Lima - Last Filed: 04/22/17 14:43> Attending Addendum - Attending Addendum I personally evaluated the patient and discussed the management with Dr. Camilo. I agree with the History, Examination, Assessment and Plan documented above with any addition or exceptions noted below. Patient does not have v. zoster on finger. It appears to be a herpetic pranay. Acyclovir is appropriate. Stable for discharge. <Bret Lima - Last Filed: 04/22/17 14:43>
== END 2017-04-22 14:00 | disposition home or self-care (01) | DRG 765 ==
LOC: L&D 05:39 → 3SW 11:31
PROVIDERS: ADMIT Family Medicine; ATTEND Family Medicine
PROC: 10D00Z1 Extraction of Products of Conception, Low, Open Approach (ICD-10-PCS; principal; 2017-04-20)
DX: O34.211 Maternal care for low transverse scar from previous cesarean delivery (principal); O98.52 Other viral diseases complicating childbirth; B02.9 Zoster without complications; Z37.0 Single live birth; Z3A.39 39 weeks gestation of pregnancy
CPT/HCPCS: 51702; 85027; 86780; 86850; 86900; 86901; 87340; A4216; J0131; J1100; J1170; J1885; J2175; J2274; J2405; J2590; J3010

== ENCOUNTER 2017-04-24 17:02 | Observation (INO) | payer OTHER ==
[2017-04-24 17:36] LABS: #Eosinphils 0.2 thou/uL (0.0-0.7); #Lymphocytes 2.6 thou/uL (1.20-3.40); #Monocytes 0.6 thou/uL (0.11-0.59); #Neutrophils 5.8 thou/uL (1.40-6.50); %Basophils 0.4 % (0.0-1.0); %Eosinophils 2.3 % (0.0-10.0); %Lymphocytes 28.5 % (21.0-51.0); %Neutrophils 62.9 % (42.0-75.0); Hemoglobin 12.7 g/dL (12.0-16.0); Mean Corpuscular HGB CONC 33.1 g/dL (32.0-36.0); Mean Corpuscular Hemoglobin 30.8 pg (27.0-31.0); Mean Platelet Volume 7.3 fL (7.4-10.4); Platelet Count 173 thou/uL (130-400); RBC Distribution Width 12.5 % (11.5-14.5); White Blood Cell (WBC) Count 9.2 thou/uL (4.8-10.8)
[2017-04-24 18:03] LABS: ALT (SGPT) 18 U/L (8-55); AST (SGOT) 22 U/L (5-34); Albumin 3.5 g/dL (3.5-5.0); Alkaline Phosphatase 115 U/L (40-150); Anion Gap 12 mmol/L (10-20); BUN (Urea Nitrogen) 7 mg/dL (7.0-18.7); Bilirubin, Total 0.4 mg/dL (0.2-1.2); Calc. Creatinine Clearance 0 mL/min (70-130); Calcium 9.2 mg/dL (7.8-10.44); Carbon Dioxide 23 mmol/L (22-29); Chloride 107 mmol/L (98-107); Estimated GFR-MDRD Greater than 90; Globulin 3.1 g/dL (2.4-3.5); Glucose 76 mg/dL (70-105); Potassium 3.8 mmol/L (3.5-5.1); Protein, Total 6.6 g/dL (6.0-8.3); Sodium 138 mmol/L (136-145)
[2017-04-24] MEDS ORDERED: Morphine 4 MG/ML Carpuject ONE (21:59)
[2017-04-24] MEDS ORDERED: Ibuprofen 800 MG TAB ONE (22:05)
[2017-04-24] MEDS ORDERED: HYDROcodone/Acetaminophen 5/325 mg Tablet ONE (22:05)
[2017-04-24 22:27] LABS: Bilirubin Small (Negative); Blood, Urine Large (Negative); Clarity Cloudy (Clear); Glucose, Urine (Dipstick) Negative (Negative); Leukocyte Trace (Negative); Nitrite Positive (Negative); Protein, Urine (Dipstick) 100 mg/dL (Neg-Trace); Urobilinogen 0.2 mg/dL (0.2-1.0)
[2017-04-24 22:30] LABS: Bacteria/HPF Rare-Few HPF (None Seen); Hyaline Casts/LPF 0-3 HYALINE CAST LPF (0-3 Hyaline); RBC/HPF GREATER THAN 50-TNTC HPF (0-3); Squamous Epithelial 0-3 HPF (0-3); Yeast-All Forms None Seen HPF (None Seen)
[2017-04-24] MEDS ORDERED: diphenhydrAMINE 25 MG CAP PO PRN (23:37)
[2017-04-24] MEDS ORDERED: Labetalol HCl 100 MG/20 ML VIAL SLOW IVP PRN (23:37)
[2017-04-24] MEDS ORDERED: Ondansetron HCl/PF 4 MG/2 ML Vial IVP PRN (23:37)
[2017-04-24] MEDS ORDERED: Promethazine HCl 25 MG/ML VIAL IM PRN (23:37)
[2017-04-24] MEDS ORDERED: Morphine 5 MG/ML SYRINGE SLOW IVP PRN (23:37)
[2017-04-25 00:02] VITALS: BMI 35.9
[2017-04-25] MEDS ORDERED: Lanolin Ointment 7 GM TUBE TOP PRN (00:12)
[2017-04-25] MEDS ORDERED: Labetalol 100 MG TAB PO SCH (00:45)
[2017-04-25] MEDS ORDERED: cefTRIAXone\\ROCEPHIN 1 GM in Sodium Chloride 0.9% 100 ML IVPB SCH (00:45)
[2017-04-25] MEDS: Acyclovir 800 mg Tablet PO SCH ×2 (00:53→08:43)
[2017-04-25] MEDS: Labetalol 100 MG TAB PO SCH ×2 (00:53→08:44)
[2017-04-25] MEDS ORDERED: cefTRIAXone\\ROCEPHIN 1 GM, Syringe 0.4 ML in Sterile Water 9.6 ML SLOW IVP SCH (01:00)
[2017-04-25] MEDS: HYDROcodone/Acetaminophen 5/325 mg Tablet PO PRN ×3 (01:48→11:47)
[2017-04-25 01:53] LABS: Bilirubin Negative (Negative); Blood, Urine Negative (Negative); Clarity CLEAR (Clear); Glucose, Urine (Dipstick) Negative (Negative); Leukocyte Negative (Negative); Nitrite Negative (Negative); Protein, Urine (Dipstick) Negative (Neg-Trace); Specific Gravity, Urine 1.017 (1.002-1.036)
[2017-04-25 01:55] LABS: Bacteria/HPF None Seen HPF (None Seen); Hyaline Casts/LPF 0-3 HYALINE CAST LPF (0-3 Hyaline); Pathc Cast-AUWi Flag 0.13 (0-2.49); RBC/HPF None Seen HPF (0-3); Squamous Epithelial 0-3 HPF (0-3); WBC/HPF 0-3 HPF (0-3)
[2017-04-25 02:04] LABS: Creatinine, Urine 66.37 mg/dL (47-110); Protein, Urine Random Quant Less than 10 mg/dL
--- NOTE | 2017-04-25 04:16 | HP-2 ---
CODE STATUS: FULL. PRIMARY CARE PHYSICIAN: Dr. Camilo. ATTENDING: Neda Toro D.O. RESIDENT: Dr. Kenyon. CHIEF COMPLAINT: Increased blood pressure and swelling in legs. HISTORY OF PRESENT ILLNESS: This 27-year-old female day #4 status post repeat low transverse section who presented because her legs got more swollen last night. She reports that she checked her blood pressure at home and it was 157/99. This morning, she also noticed a rash on her abdomen and she made an appointment to go into the office, started having a headache that she describes as being on the front and the top of her head, worsened by neck movement and associated with pain in the back of her neck. She also reports blurry vision that comes and goes, but denies any flashes of light or other vision changes. She states that the swelling has gone down a little in the past few hours on her legs that her headache has gone away and then come back since being back in the ER. PAST MEDICAL HISTORY: Varicella zoster, being currently treated. PAST SURGICAL HISTORY: x2. ALLERGIES: No known drug allergies. MEDICATIONS: 1. Acyclovir 800 mg 5 times a day. 2. vitamin. FAMILY HISTORY: None. SOCIAL HISTORY: Denies tobacco, alcohol, or drug use. REVIEW OF SYSTEMS: General: Negative for fever, chills, fatigue. Eyes: Positive for vision changes. ENT: Negative for rhinorrhea, sore throat. Head : Positive for headache. Respiratory: Negative for cough, shortness of breath. Cardiovascular: Negative for chest pain. Positive for edema. Gastrointestinal: Positive for abdominal pain. Negative for nausea, vomiting. Genitourinary: Positive for dysuria. Negative for polyuria. Skin: Positive for rashes. Negative for lesions. Musculoskeletal: Positive for pain, tenderness, swelling. Neurologic: Negative for weakness, numbness. Psychiatric: Positive for anxiety. PHYSICAL EXAMINATION: VITAL SIGNS: Blood pressure 146/78, pulse 94, respiratory rate 18. Temperature 98.8, pulse ox 100% on room air, current weight 91.17 kilograms. GENERAL: Alert and oriented x3, no acute distress, obese, appropriately interactive. EYES: PERRLA. Extraocular muscles intact. Conjunctivae within normal limits. ENT: Nasal mucosa and oropharynx within normal limits. NECK: Supple, no lymphadenopathy. CARDIOVASCULAR: Regular rate and rhythm. No murmurs or gallops, 2+ radial and pedal pulses. RESPIRATORY: Normal effort, no retractions. Clear to auscultation bilaterally. SKIN: Warm, dry. No cyanosis. Urticaria on the face and chest and maculopapular erythematous rash on the abdomen and upper thighs. ABDOMEN: Soft, appropriately tender to palpation. Normoactive bowel sounds. No mass or distention. EXTREMITIES: No cyanosis. Trace pitting edema. MUSCULOSKELETAL: Structure, tone within normal limits. Full range of motion. NEUROLOGIC: No focal deficits. PSYCHIATRIC: Anxious. LABORATORY DATA: WBC 9.2, hemoglobin 12.7, hematocrit 38.2, platelets 173. Sodium 138, potassium 3.8, chloride 107, CO2 is 23, BUN 7, creatinine 0.55, glucose 78, calcium 9.2, AST 22, ALT 18, alkaline phosphatase 115, total bilirubin 0.4. Urine fpvllfz-uh-yosenczthp ratio is 0.15. ASSESSMENT AND PLAN: This is a 27-year-old female who presents with: 1. -induced hypertension. The patient has no signs or symptoms of preeclampsia at this time, and has a protein-creatinine ratio of 0.15, but we will monitor blood pressures closely and will treat hypertension with labetalol and if blood pressures are elevated above 160/110, we will consider repeating labs and consider starting magnesium. 2. Allergic versus contact dermatitis. We will treat with Benadryl and monitor. 3. day #4. Continue vitamin, [place] as needed. Continue . 4. Varicella zoster. Continue to keep the lesions covered and treated with acyclovir. 5. Venous thromboembolism prophylaxis, sequential compression devices. DISPOSITION: Observation on . Symptomatic medications will be provided. History and physical exam as well as management discussed with Dr. Toro. ADRIEL
[2017-04-25] MEDS ORDERED: Morphine 5 MG/ML SYRINGE SLOW IVP SCH (06:00)
[2017-04-25] MEDS ORDERED: Ibuprofen 800 MG TAB PO SCH (06:00)
--- NOTE | 2017-04-25 07:51 | PDOC.FM ---
- Subjective Subjective: Mrs. Leslie is doing better this morning. There were no acute events overnight. She is still concerned and has questions about why her blood pressure became elevated. She states that the swelling in her legs has improved dramatically. Denies fever, chest pain, dyspnea. Abd pain seems to be well controlled. - Objective MAR Reviewed: Yes Vital Signs & Weight: Vital Signs (12 hours) Temp Pulse Resp BP BP Pulse Ox 04/25/17 04:30 97.6 F 64 16 137/68 97 04/25/17 01:02 81 136/84 04/25/17 00:53 81 136/84 04/25/17 00:50 136/84 04/24/17 23:05 97.8 F 68 20 140/85 140/85 97 Weight Admit Weight 92.079 kg Weight 92.079 kg I&O: 04/24/17 04/25/17 04/26/17 06:59 06:59 06:59 Intake Total 20 Output Total 500 Balance -480 Result Diagrams: 04/24/17 17:26 04/24/17 17:26 <Aaron Silverio - Last Filed: 04/25/17 08:59> - Objective Vital Signs & Weight: Vital Signs (12 hours) Temp Pulse Resp BP BP Pulse Ox 04/25/17 08:44 77 04/25/17 08:13 99.0 F 77 20 119/66 04/25/17 08:00 99.0 F 77 20 04/25/17 04:30 97.6 F 64 16 137/68 97 04/25/17 01:02 81 136/84 04/25/17 00:53 81 136/84 04/25/17 00:50 136/84 Weight Admit Weight 92.079 kg Weight 92.079 kg I&O: 04/24/17 04/25/17 04/26/17 06:59 06:59 06:59 Intake Total 860 Output Total 600 Balance 260 Result Diagrams: 04/24/17 17:26 04/24/17 17:26 <Neda Toro - Last Filed: 04/25/17 11:38> Phys Exam - Physical Examination Constitutional: NAD HEENT: moist MMs, sclera anicteric Neck: no JVD, supple, full ROM Respiratory: no wheezing, no rales, no rhonchi, clear to auscultation bilateral Cardiovascular: RRR, no significant murmur Gastrointestinal: soft, no distention, positive bowel sounds appropriate TTP for s/p delivery Musculoskeletal: no edema Neurological: moves all 4 limbs Psychiatric: A&O x 3 Skin: no rash <Aaron Silverio - Last Filed: 04/25/17 08:59> Dx/Plan (1) induced hypertension, Code(s): O13.5 - GESTATNL HTN WITHOUT SIGNIFICANT PROTEIN, COMP THE PUERP Status: Acute (2) Status post delivery Code(s): Z98.891 - HISTORY OF UTERINE SCAR FROM PREVIOUS SURGERY Status: Acute (3) Herpes zoster Code(s): B02.9 - ZOSTER WITHOUT COMPLICATIONS Status: Acute - Plan Plan: delivered on 04/20 via rLTCS Initially presented after checking BP at home, which was 157/99 Also developed headache that day and blurry vision that comes and goes BPs since admission have been 136/84 to 140/85 UA showed less than 10 protein Patient does not have pre-eclampsia She will likely be cleared for discharge today if symptoms are resolved and presssure remain wnl Will otherwise continue routine post- care. <Aaron Silverio - Last Filed: 04/25/17 08:59> Attending Addendum - Attending Addendum I personally evaluated the patient and discussed the management with Dr. Silverio on 04/25/17. I agree with the History, Examination, Assessment and Plan documented above with any addition or exceptions noted below. Patient does not meet criteria for preeclampsia and has no severe features. Currently diagnosed with gestational HTN, well controlled this morning on labetalol. Headache and edema resolved. Discussed precautions at length. Will discharge home with close follow up with Dr. Camilo. <Neda Toro - Last Filed: 04/25/17 11:38>
[2017-04-25 08:14] VITALS: BP 119/66; TEMP 99
[2017-04-25] MEDS ORDERED: Prenatal Vitamin 1 TAB PO SCH (09:00)
--- NOTE | 2017-04-25 12:44 | DIS-2 ---
DATE OF ADMISSION: 04/24/2017 DATE OF DISCHARGE: 04/25/2017 RESIDENT: Aaron Silverio M.D. ADMITTING ATTENDING: Neda Toro D.O. DISCHARGE ATTENDING: Neda Toro D.O. CONSULTATIONS: None. PROCEDURES: None. PRIMARY DIAGNOSIS: -induced hypertension. SECONDARY DIAGNOSES: 1. Allergic versus contact dermatitis. 2. day #4. 3. Varicella zoster. DISCHARGE MEDICATIONS: Resume home medications; 1. Colace 100 mg 1 tab p.o. b.i.d. 2. Acetaminophen 500 mg p.o. q.6 hours p.r.n. 3. Acyclovir 800 mg p.o. x5 days. 4. [place] 5/325 one tab p.o. q.4 hours p.r.n. 5. Ibuprofen 800 mg p.o. q.8 hours. 6. vitamin. NEW HOME MEDICATIONS: 1. Labetalol 100 mg p.o. b.i.d. 2. Lanolin ointment topical p.r.n. DISCONTINUED MEDICATIONS: 1. Morphine. 2. Benadryl. HISTORY OF PRESENT ILLNESS AND HOSPITAL COURSE: Ms. Carmen Leslie is a 27-year-old female G3, P2 day #4, who presented to the ED status post repeat low transverse section. She presented to the ED because her legs became more swollen over the previous night. She checked her bl ood pressure at home, it was 157/99. She also developed a headache the day of admission. She states that her blood pressure was as high as 157/99. She also reported blurry vision that comes and goes. Denied any other vision changes. When she got to the ER, her blood pressure is 146/78, pulse 94, r espiratory rate 18, temperature 98.8 and pulse ox 100% on room air. Physical exam was only significa nt for appropriately tender to palpation of the abdomen. Incision site was good, well healing. LABS : White blood cell count was 9.2, hemoglobin 12.7. Urine iputpiv-so-xinusscjie ratio was 0.15. The patient was admitted for preeclampsia rule out. The patient was given labetalol 100 mg p.o. b.i.d. We monitored her blood pressures closely. Urine random total protein was less than 10. The patient 's blood pressures in the hospital were as high as throughout admission. It was 140/85 down to 137/6 8. On morning of discharge, her blood pressure was 119/66. The patient states that her symptoms hav e improved dramatically. Plan was discussed with the patient and it was agreed upon that she would c ontinue labetalol and follow up with her primary care physician, Dr. Camilo, within the next week. DISPOSITION: Stable. DISCHARGE INSTRUCTIONS: 1. Location: Home. 2. Diet: Regular diet. 3. Activity: As tolerated. 4. Followup: Follow up with primary care provider, Dr. Camilo, within a week.
== END 2017-04-25 13:44 | disposition home or self-care (01) ==
LOC: ERS 17:02 → 3SE 20:35
PROVIDERS: ADMIT Family Medicine; ATTEND Family Medicine
DX: O13.5 Gestational [pregnancy-induced] hypertension without significant proteinuria, complicating the puerperium (principal); R60.0 Localized edema; O98.53 Other viral diseases complicating the puerperium; B02.9 Zoster without complications; Z79.899 Other long term (current) drug therapy; Z98.891 History of uterine scar from previous surgery
CPT/HCPCS: 36415; 80053; 81001; 81003; 81015; 82570; 84156; 84550; 85025; 87086; 96374; 96375; 96376; J2270; A4216; A4353; G0378; J0696

== ENCOUNTER 2017-04-30 16:26 | Emergency (ER) | payer OTHER ==
[2017-04-30] MEDS ORDERED: Ondansetron HCl/PF 4 MG/2 ML Vial ONE (17:04)
[2017-04-30] MEDS ORDERED: Morphine 4 MG/ML Carpuject ONE (17:04)
[2017-04-30 17:27] LABS: #Basophils 0.1 thou/uL (0.0-0.2); #Eosinphils 0.1 thou/uL (0.0-0.7); #Lymphocytes 2.8 thou/uL (1.20-3.40); #Monocytes 0.6 thou/uL (0.11-0.59); #Neutrophils 3.2 thou/uL (1.40-6.50); %Basophils 2.1 % (0.0-1.0); %Eosinophils 1.3 % (0.0-10.0); %Monocytes 9.1 % (0.0-10.0); %Neutrophils 46.5 % (42.0-75.0); Mean Corpuscular HGB CONC 33.3 g/dL (32.0-36.0); Mean Corpuscular Hemoglobin 29.7 pg (27.0-31.0); Mean Corpuscular Volume 89.4 fl (81.0-99.0); Mean Platelet Volume 7.8 fL (7.4-10.4); Platelet Count 217 thou/uL (130-400); RBC Distribution Width 11.8 % (11.5-14.5); White Blood Cell (WBC) Count 6.9 thou/uL (4.8-10.8)
[2017-04-30 17:44] LABS: ALT (SGPT) 23 U/L (8-55); AST (SGOT) 30 U/L (5-34); Albumin 3.9 g/dL (3.5-5.0); Alkaline Phosphatase 94 U/L (40-150); Anion Gap 16 mmol/L (10-20); BUN (Urea Nitrogen) 12 mg/dL (7.0-18.7); Bilirubin, Total 0.3 mg/dL (0.2-1.2); Calc. Creatinine Clearance 0 mL/min (70-130); Calcium 9.5 mg/dL (7.8-10.44); Carbon Dioxide 21 mmol/L (22-29); Chloride 107 mmol/L (98-107); Estimated GFR-MDRD Greater than 90; Globulin 3.5 g/dL (2.4-3.5); Glucose 82 mg/dL (70-105); Lipase 10 U/L (8-78); Potassium 4.3 mmol/L (3.5-5.1); Protein, Total 7.4 g/dL (6.0-8.3); Sodium 140 mmol/L (136-145)
--- NOTE | 2017-04-30 19:12 | CT ---
CT OF THE ABDOMEN AND PELVIS WITHOUT CONTRAST 04/30/17 PROVIDED CLINICAL HISTORY: Abdominal pain at section site which was performed ten days ago. FINDINGS: The visualized lung bases are free of significant opacity. There is mild right hydronephrosis and right hydroureter without apparent cause and possibly on the b asis of recent gravid state. The solid abdominal organs are suboptimally evaluated without IV contras t material but demonstrate an otherwise unremarkable unenhanced CT appearance. There are foci of gas involving the subcutaneous adipose layer of the left lower quadrant with associ ated mild stranding of the subcutaneous fat likely postsurgical in nature. The uterus appears enlarge d compatible with recent gravid state. There is no bowel dilatation, intraperitoneal fat stranding, free fluid or free air apparent. The amanda endix appears normal. The osseous structures demonstrate no concerning osteoblastic or osteolytic lesions. There is a small umbilical hernia which contains fat and possibly a small focus of nondilated small b owel. IMPRESSION: Findings compatible with the provided clinical history of recent section. No evidence for an acute process. POS: [facility]
== END 2017-04-30 19:00 | disposition home or self-care (01) ==
LOC: SCSER 16:26
DX: O99.89 Other specified diseases and conditions complicating pregnancy, childbirth and the puerperium (principal); G89.18 Other acute postprocedural pain; R10.9 Unspecified abdominal pain; Z79.899 Other long term (current) drug therapy
CPT/HCPCS: 74176; 80053; 83690; 85025; 96361; 96374; 96375; J2270; J2405

== ENCOUNTER 2017-05-09 21:35 | Emergency (ER) | payer OTHER ==
--- NOTE | 2017-05-09 22:09 | RAD ---
TWO VIEWS OF THE CHEST 05/09/17 COMPARISON: 01/20/16 HISTORY: Chest pain and difficulty catching breath. FINDINGS: Two views of the chest show normal sized cardiomediastinal silhouette. There is no evidence of consol idation, mass, or pleural effusion. The bones are unremarkable. IMPRESSION: No evidence of acute cardiopulmonary disease. POS: [facility]
[2017-05-09] MEDS ORDERED: Famotidine 20 MG TAB ONE (22:24)
[2017-05-09] MEDS ORDERED: predniSONE 20 MG TAB ONE (22:24)
[2017-05-09] MEDS ORDERED: diphenhydrAMINE 25 MG CAP ONE (22:24)
[2017-05-09] MEDS ORDERED: Lorazepam 1 MG TAB ONE (22:27)
== END 2017-05-10 00:11 | disposition home or self-care (01) ==
LOC: ERS 21:35
DX: F41.9 Anxiety disorder, unspecified (principal); Z87.891 Personal history of nicotine dependence; Z79.899 Other long term (current) drug therapy
CPT/HCPCS: 71046; 93005; J7506

== ENCOUNTER 2017-11-26 15:24 | Emergency (ER) | payer OTHER, SELFPAY ==
[2017-11-26] MEDS ORDERED: Ketorolac Tromethamine 30 MG/ML VIAL ONE (15:50)
--- NOTE | 2017-11-26 16:05 | RAD ---
2 VIEWS CHEST: Date: 11/26/17 INDICATION: Headache. IMPRESSION: No acute cardiopulmonary abnormality. The examination does not appear appreciably changed from the co mparison dated 05/09/17. POS: [facility]
== END 2017-11-26 16:25 | disposition home or self-care (01) ==
LOC: SCSER 15:24
DX: J20.8 Acute bronchitis due to other specified organisms (principal); R51 Headache; Z87.891 Personal history of nicotine dependence
CPT/HCPCS: 71046; 96372; J1885

== ENCOUNTER 2017-12-12 16:58 | Emergency (ER) | payer SELFPAY | END 2017-12-12 17:48 | disposition home or self-care (01) | LOC: SCSER 16:58 | DX: J30.9 Allergic rhinitis, unspecified (principal); Z87.891 Personal history of nicotine dependence | CPT/HCPCS: 99283 ==

== ENCOUNTER 2018-03-07 21:27 | Emergency (ER) | payer SELFPAY ==
[2018-03-07 22:15] LABS: Bilirubin Negative (Negative); Blood, Urine Negative (Negative); Clarity Clear (Clear); Glucose, Urine (Dipstick) Negative (Negative); Leukocyte Negative (Negative); Nitrite Negative (Negative); Protein, Urine (Dipstick) Negative (Neg-Trace); Specific Gravity, Urine 1.015 (1.005-1.030); Urobilinogen 0.2 mg/dL (0.2-1.0); pH, Urine 7.5 (5.0-9.0)
[2018-03-07 22:16] LABS: Pregnancy Test - Urine (BHCG) Negative (Negative); Pregu Control Background? CLEAR/WHITE (CLR/WHITE); Pregu Control Bar Appear? YES (CONTROL BAR); Specific Gravity 1.015 (1.002-1.036)
== END 2018-03-07 23:30 | disposition home or self-care (01) ==
LOC: SCSER 21:27
DX: N89.8 Other specified noninflammatory disorders of vagina (principal); F17.210 Nicotine dependence, cigarettes, uncomplicated
CPT/HCPCS: 81003; 81025; 87480; 87491; 87510; 87591; 87660; 99284

== ENCOUNTER 2018-04-21 21:14 | Emergency (ER) | payer SELFPAY ==
[2018-04-21] MEDS ORDERED: Ondansetron PF 4 MG/2 ML Vial ONE (21:45)
[2018-04-21] MEDS ORDERED: Morphine 4 MG/ML VIAL ONE (21:45)
[2018-04-21 22:09] LABS: #Basophils 0.1 thou/uL (0.0-0.2); #Eosinphils 0.1 thou/uL (0.0-0.7); #Lymphocytes 3.4 thou/uL (1.20-3.40); #Monocytes 0.4 thou/uL (0.11-0.59); #Neutrophils 5.5 thou/uL (1.40-6.50); %Basophils 0.9 % (0.0-1.0); %Eosinophils 0.5 % (0.0-10.0); %Lymphocytes 36.3 % (21.0-51.0); %Monocytes 3.9 % (0.0-10.0); %Neutrophils 58.3 % (42.0-75.0); Hemoglobin 14.4 g/dL (12.0-16.0); Mean Corpuscular HGB CONC 33.2 g/dL (32.0-36.0); Mean Corpuscular Hemoglobin 29.1 pg (27.0-31.0); Mean Corpuscular Volume 87.5 fL (78.0-98.0); Mean Platelet Volume 8.1 fL (7.4-10.4); Platelet Count 266 thou/uL (130-400); RBC Distribution Width 11.5 % (11.5-14.5); Red Blood Cell (RBC) Count 4.95 mill/uL (4.20-5.40); White Blood Cell (WBC) Count 9.4 thou/uL (4.8-10.8)
[2018-04-21 22:30] LABS: ALT (SGPT) 13 U/L (8-55); AST (SGOT) 18 U/L (5-34); Albumin 4.7 g/dL (3.5-5.0); Alkaline Phosphatase 59 U/L (40-150); Anion Gap 16 mmol/L (10-20); BUN (Urea Nitrogen) 7 mg/dL (7.0-18.7); Bilirubin, Total 0.5 mg/dL (0.2-1.2); Calc. Creatinine Clearance 0 mL/min (70-130); Calcium 9.8 mg/dL (7.8-10.44); Carbon Dioxide 20 mmol/L (22-29); Chloride 108 mmol/L (98-107); Estimated GFR-MDRD 83; Glucose 107 mg/dL (70-105); Potassium 3.7 mmol/L (3.5-5.1); Protein, Total 7.7 g/dL (6.0-8.3); Sodium 140 mmol/L (136-145)
[2018-04-21 22:46] LABS: Bilirubin Negative (Negative); Blood, Urine Negative (Negative); Clarity CLEAR (Clear); Glucose, Urine (Dipstick) Negative (Negative); Leukocyte Trace (Negative); Nitrite Negative (Negative); Protein, Urine (Dipstick) Negative (Neg-Trace); Specific Gravity, Urine 1.015 (1.002-1.036); pH, Urine 6.5 (5.0-9.0)
[2018-04-21 22:47] LABS: Pregnancy Test - Urine (BHCG) Negative (Negative); Pregu Control Background? CLEAR/WHITE (CLR/WHITE); Pregu Control Bar Appear? YES (CONTROL BAR); Specific Gravity 1.015 (1.002-1.036)
[2018-04-21 22:48] LABS: Bacteria/HPF None Seen HPF (None Seen); Hyaline Casts/LPF 0-3 HYALINE CAST LPF (0-3 Hyaline); RBC/HPF 0-3 HPF (0-3); Squamous Epithelial 0-3 HPF (0-3); WBC/HPF 0-3 HPF (0-3)
--- NOTE | 2018-04-21 23:56 | ULT ---
ULTRASOUND PELVIC ULTRASOUND TRANSVAGINAL DOPPLER DUPLEX: 04/21/18 HISTORY: 28-year-old female with severe pelvic pain. TECHNIQUE: Transabdominal transducer used to evaluate intrapelvic contents using the urinary bladder as an acous tic window. Endovaginal transducer used to visualize intrapelvic contents in greater detail. Color fl ow Doppler and Pulsed Doppler spectral waveform analysis of ovaries. FINDINGS: Uterus: 8.6 x 4 x 6 cm. Endometrial stripe: 1.1 cm (11 mm). No uterine fibroids. No free fluid in the cul-de-sac. Right ovary: 3 x 3 cm, with blood flow demonstrated. A 1.5 x 1.5 x 1 cm prominent follicle in the right ovary. Left ovary: 3 x 3 x 2 cm, with blood flow. A 1.5 x 1.5 x 1 cm prominent left ovarian follicle. Tiny amount of free fluid within the endocervical canal. A 1 x 0.5 cm thin walled cystic structure at the upper cervix or lower uterine segment. IMPRESSION: 1)Small cystic structure at lower uterine segment. Exact etiology uncertain. Uncertain whether or not this represents a Nabothian cyst or early first trimester gestational sac undergoing spontaneous abo rtion. 2)Tiny amount of fluid within the endocervical canal. 3)Otherwise negative. TEMI Ureña POS: [facility]
[2018-04-22] MEDS ORDERED: Ketorolac Tromethamine 30 MG/ML VIAL ONE (00:09)
== END 2018-04-22 00:55 | disposition home or self-care (01) ==
LOC: ERS 21:14
DX: R10.30 Lower abdominal pain, unspecified (principal); I10 Essential (primary) hypertension; F17.210 Nicotine dependence, cigarettes, uncomplicated
CPT/HCPCS: 76856; 80053; 81003; 81015; 81025; 85025; 96374; 96375; J1885; J2270; J2405

== ENCOUNTER 2018-04-22 16:12 | Observation (INO) | payer SELFPAY ==
[~2018-04-22 16:12] MED LIST: Iopamidol 370 76% 100 ML VIAL ONE
[2018-04-22] MEDS ORDERED: Ondansetron PF 4 MG/2 ML Vial ONE (16:44)
[2018-04-22] MEDS ORDERED: Ketorolac Tromethamine 30 MG/ML VIAL ONE (16:44)
[2018-04-22 16:58] LABS: Eosinophils 1 % (0-10); Hemoglobin 15.1 g/dL (12.0-16.0); Lymphocytes 22 % (21-51); MDiff Complete? YES; Mean Corpuscular HGB CONC 33.7 g/dL (32.0-36.0); Mean Corpuscular Hemoglobin 29.6 pg (27.0-31.0); Mean Platelet Volume 9.5 fL (7.4-10.4); Monocytes 5 % (0-10); Neutrophil 60 % (42-75); Platelet Count 251 thou/uL (130-400); Platelet Morphology Comment Appears Adequate; RBC Distribution Width 11.8 % (11.5-14.5); Reactive Lymphocytes 12 % (0-10); White Blood Cell (WBC) Count 9.4 thou/uL (4.8-10.8)
[2018-04-22] MEDS ORDERED: Morphine 4 MG/ML VIAL ONE ×2 (17:00→19:42)
[2018-04-22 17:13] LABS: ALT (SGPT) 16 U/L (8-55); AST (SGOT) 17 U/L (5-34); Albumin 4.5 g/dL (3.5-5.0); Alkaline Phosphatase 52 U/L (40-150); Anion Gap 13 mmol/L (10-20); BUN (Urea Nitrogen) 11 mg/dL (7.0-18.7); Bilirubin, Total 0.7 mg/dL (0.2-1.2); Calc. Creatinine Clearance 0 mL/min (70-130); Calcium 9.4 mg/dL (7.8-10.44); Carbon Dioxide 22 mmol/L (22-29); Chloride 109 mmol/L (98-107); Estimated GFR-MDRD Greater than 90; Glucose 92 mg/dL (70-105); Potassium 3.9 mmol/L (3.5-5.1); Protein, Total 7.5 g/dL (6.0-8.3); Sodium 140 mmol/L (136-145)
--- NOTE | 2018-04-22 18:33 | CT ---
CT ABDOMEN WITH CONTRAST CT PELVIS WITH CONTRAST: 04/22/18 HISTORY: 28-year-old female with lower abdominal pain. TECHNIQUE: IV injection of iodinated contrast media: 100 mL Isovue 370. Oral contrast media: Not administered. FINDINGS: Liver: No focal solid mass. Spleen: No splenomegaly. Pancreas: No mass or surrounding fat stranding. Adrenals: No mass. Kidneys: No hydronephrosis or enhancement abnormalities. Ureters: No dilation. Bladder: No pathology identified. Abdominal aorta: No aneurysm. Small bowel: No dilation. Colon: No adjacent fat stranding. Appendix: No dilation or adjacent fat stranding. Free air: None. Free fluid: None. Within the far ventral, inferior aspect of the peritoneal cavity, abutting the undersurface of the lo wer portion of the right rectus abdominis/peritoneal surface, there is a small 1 cm round hypodense l esion, without adjacent fat stranding. It was not present on 04/30/17. Etiology is uncertain. IMPRESSION: 1. No major pathology identified. 2. Incidental finding with tiny round probably cystic structure in the right paramedian ventral peritoneal cavity of uncertain etiology and significance. adeline [] POS: [facility]
[2018-04-22] MEDS ORDERED: Azithromycin 250 MG TAB ONE (19:14)
[2018-04-22] MEDS ORDERED: Lidocaine 1% PF 5 ML VIAL ONE (19:14)
[2018-04-22] MEDS ORDERED: metroNIDAZOLE 500 MG TAB ONE (19:14)
[2018-04-22] MEDS ORDERED: cefTRIAXone\\ROCEPHIN 250 MG VIAL ONE (19:14)
[2018-04-22 22:08] VITALS: BMI 27.8
--- NOTE | 2018-04-22 22:56 | PDOC.FPRHP ---
- History of Present Illness Chief Complaint: Low abdominal pain History of Present Illness: 28 yo F with PMH nephrolithiasis is admitted from [facility] for observation due to intractable abdominal pain. Lower abdominal pain as been intermittent for past 2 months or more. She has been seen multiple times in clinic and ED for this complaint. She was diagnosed with bacterial vaginosis and took flagyl for this. Says pain is progressing. Now has painful intercourse, can be sitting and there is pain. Feels like she needs to urinate frequently, but not much comes out. Has sensation of low abdominal pain and pressure with urination. Pain is worse when on her feet a lot. Rectal pain as well. Yesterday pain became unbearable, associated with vomiting/dry heaving. Decreased appetite past couple days. Tolerating liquids. Denies vaginal bleeding/discharge. Pain improved with NSAIDs, now 5/10. At worse it was 12/10. Pain described as a constant cramping and pressure with intermittent intense sharp episodes. Patient unsure if pain associated with menstrual cycle. Menstruation has always been regular. LMP 03/30/18. Patient did have bleeding that started the morning before her colposcopy last . With PCP plans for leep procedure in future. Patient is engaged and wishes to become pregant after wed. Of note, patient was previously on OCPs, however started to have abdominal cramping and discontinued them 3 mo ago thinking they could be causing pain. - Allergies/Adverse Reactions Allergies Allergy/AdvReac Type Severity Reaction Status Date / Time No Known Drug Allergies Allergy Verified 04/25/17 01:07 - Home Medications Medication Instructions Recorded Confirmed Type Docusate [Colace] 1 tab PO BID 02/11/17 04/25/17 History Acetaminophen [Tylenol Extra 500 mg PO Q6H PRN tab 04/22/17 04/25/17 Rx Strength] Acyclovir [Zovirax] 800 mg PO 5XD #25 tab 04/22/17 04/25/17 Rx HYDROcodone Bit/APAP 5/325 [Garfield] 1 tab PO Q4H PRN #30 tab 04/22/17 04/25/17 Rx Ibuprofen [Motrin] 800 mg PO Q8HR #30 tab 04/22/17 04/25/17 Rx 21/Iron Fu/Folic Acid 1 tablet PO DAILY #30 tablet 04/22/17 04/25/17 Rx [ Complete Caplet] Vitamin 1 tab PO DAILY tab 04/22/17 04/25/17 Rx Labetalol [Normodyne] 100 mg PO BID #60 tab 04/25/17 Rx Lanolin Ointment [Lansinoh 0 gm TOP PRN PRN #1 tube 04/25/17 Rx Ointment] - History PMHx: nephrolithiasis PSHx: x2 FHx: grandmother - breast ca, mother- cervical cancer @ 35, grandfather- bladder ca Social: Denies tobacco, alcohol, drug use. - Review of Systems General: reports: weight/appetite/sleep changes (decreased appetite). denies: fever/chills ENT: denies: nasal congestion Respiratory: denies: cough, shortness of breath Cardiovascular: denies: chest pain, edema Gastrointestinal: reports: vomiting, abdominal pain. denies: constipation Genitourinary: denies: dysuria Musculoskeletal: denies: pain, tenderness Neurological: denies: weakness - Vital signs BP: 128/82 HR: 67 Tmax: 97.9 Pox: 94% on RA Wt: 73kg - Physical Exam Constitutional: NAD, well developed HEENT: normocephalic and atraumatic Heart: RRR, normal S1/S2, no murmurs/rubs/gallops Lungs: CTAB, good air movement, no rales/rhonchi, no wheezing Abdomen: soft, bowel sounds present, no masses/distention, other (lower abdomen TTP, no guarding, scar healed well,no obvious hernia) Musculoskeletal: normal structure Neurological: no focal deficit Skin: no rash/lesions, capillary refill <2 seconds Heme/Lymphatic: no unusual bruising or bleeding Psychiatric: normal mood and affect FMR H&P: Results - Labs Result Diagrams: 04/22/18 16:36 04/22/18 16:53 Lab results: WBC 9.4 thou/uL (4.8-10.8) 04/22/18 16:36 Hgb 15.1 g/dL (12.0-16.0) 04/22/18 16:36 Hct 44.9 % (36.0-47.0) 04/22/18 16:36 MCV 88.0 fL (78.0-98.0) 04/22/18 16:36 Plt Count 251 thou/uL (130-400) 04/22/18 16:36 Sodium 140 mmol/L (136-145) 04/22/18 16:53 Potassium 3.9 mmol/L (3.5-5.1) 04/22/18 16:53 Chloride 109 mmol/L (98-107) H 04/22/18 16:53 Carbon Dioxide 22 mmol/L (22-29) 04/22/18 16:53 BUN 11 mg/dL (7.0-18.7) 04/22/18 16:53 Creatinine 0.67 mg/dL (0.6-1.1) 04/22/18 16:53 Glucose 92 mg/dL (70-105) 04/22/18 16:53 Calcium 9.4 mg/dL (7.8-10.44) 04/22/18 16:53 Total Bilirubin 0.7 mg/dL (0.2-1.2) 04/22/18 16:53 AST 17 U/L (5-34) 04/22/18 16:53 ALT 16 U/L (8-55) 04/22/18 16:53 Alkaline Phosphatase 52 U/L (40-150) 04/22/18 16:53 Serum Total Protein 7.5 g/dL (6.0-8.3) 04/22/18 16:53 Albumin 4.5 g/dL (3.5-5.0) 04/22/18 16:53 FMR H&P: A/P - Problem List (1) Intractable abdominal pain Current Visit: Yes Status: Acute Code(s): R10.9 - UNSPECIFIED ABDOMINAL PAIN (2) Cyst Current Visit: Yes Status: Acute Code(s): [id number] - (3) Vaginal discharge Current Visit: Yes Status: Acute Code(s): N89.8 - OTHER SPECIFIED NONINFLAMMATORY DISORDERS OF VAGINA - Plan Intractable abdominal pain - ddx includes endometriosis, incarcerated hernia, post surgical defect, cyst. Ovarian torsion and appendicitis now ruled out by imaging. PID not likely. - s/p 2 c-sections - has gotten pelvic ultrasound and CT ab/pelvis. - CT showed 1 cm round paramedian ventral peritonial hypodense lesion, likely cystic. - pain control with toradol prn and tramadol for breakthrough 1 cm cystic ventral peritoneal lesion - may consider ultrasound for further evaluation Vaginal Discharge - ED exam showed significant yellow discharge, painful exam but no cervical motion tenderness - received azithromycin and rocephin in ED - patient notes single sexual partner - VP3, gonorrhea, chlamydia pending Diet: Regular Dispo: admit for observation FMR H&P: Upper Level - Pertinent history 28 y/o F presents for evaluation of continued abdominal pain. Seen by PCP and [facility] over the prior few weeks for similar sxs and recently underwent colposcopy w/ scheduled leep. Pt contacted after hours pager overnight on 04/21 with acute worsening of pain associated w/ nausea and vomitting w/ process environmental technician MD prompting patient go to the ER for further eval. In the ER, patient had normal labs and Pelvic U/S was negative for ovarian torsion or other abnormalities. Pt was d/c' ed home by [facility] w/ plan to follow-up w/ PCP and [facility] for further evaluation. Pt contacted PCP again today w/ concerns about continued pain and again prompted to go to the ER 2/[address] scan obtained WNL w/ small 1 cm cyst identified. PCP contacted and agreeable to admission 2/2 intractable abdominal pain. Of note, patient reportedly w/ abnormal yellow vaginal discharge concerning for possible GC/Chl and was started on Rx for this earlier today. Pt w/ hx of GC/Chl. Denies any fevers. For further details, refer to summer internship note. No cervical motion tenderness per ER report. - Pertinent findings CT-AP - 1 cm cystic structure w/o surrounding fat stranding of the right paramedian ventral abdominal cavity. Otherwise NAD. Pelvic U/S - Small cystic structure at lower uterine segment and tiny amount of fluid w/i the endocervical canal WBC - 9.4 b-hcg - Negative VP3 and GC/Chl obtained in ER w/ results pending at this time Vitals per summer internship note PE: GEN: NAD, resting in bed comfortably CARD: RRR, no murmur, rub, or gallop PULM: CTA-b/l, no rales, wheezes, or rhonci GI: Mild TTP suprapubic region, no rigidity, no rebound, no guarding. BSx4 - Plan Date/Time: 04/22/18 [id number] Forrest Thornton MD, have evaluated this patient and agree with findings/plan as outlined by summer internship resident. Pertinent changes/additions are listed here. 28 y/o F w/: 1) Intractable abdominal pain w/ unclear etiology (suspected endometriosis) - Will give patient toradol for pain control w/ ultram available for breakthrough - Pain possibly from presumed vaginitis vs small cystic structure seen on CT- AP. No overt PID w/ negative cervical motion tenderness on exam. - Other possible causes included ruptured ovarian cyst w/ a small amount of free fluid seen on her pelvic U/S from 04/21 vs endometriosis - Pt may also benefit from further STUDY ABROAD ADVISOR eval if no other clear etiology is identified to eval for possible underlying endometriosis as patient is in the peak age range for presentation (25-35), presenting w/ pelvic pain, dysparenuria , and cystic mass visualized on her abdominal wall - Imaging negative for ovarian torsion or acute appendicitis 2) 1 cm ventral peritoneal cyst - As noted above, possibly 2/2 undiagnosed underlying endometriosis 3) Vaginal discharge (BV vs STD) - VP3 and GC/Chl pending - Pt has already received 1 gram of azithromycin and 250 mg of rocephin in the ER prior to admission 4) Other chronic problems per summer internship note Assessment and Plan discussed w/ Dr. Lucas who is in agreement.
[2018-04-22] MEDS ORDERED: Morphine 4 MG/ML VIAL SLOW IVP PRN (22:57)
[2018-04-22] MEDS ORDERED: Ondansetron ODT 4 MG TAB SL PRN (22:58)
[2018-04-22] MEDS ORDERED: Ondansetron PF 4 MG/2 ML Vial IVP PRN (22:58)
[2018-04-22] MEDS: Ketorolac Tromethamine 30 MG/ML VIAL IVP PRN (23:37)
[2018-04-23] MEDS: Ketorolac Tromethamine 30 MG/ML VIAL IVP PRN (06:13)
[2018-04-23] MEDS: traMADol HCl 50 MG TAB PO PRN ×2 (08:24→16:08)
[2018-04-23] MEDS: Acetaminophen 325 MG TAB PO PRN ×2 (09:10→16:08)
--- NOTE | 2018-04-23 09:23 | PDOC.FM ---
- Subjective Subjective: NAEO, abd pain improved. Able to tolerate dinner. - Objective MAR Reviewed: Yes Vital Signs & Weight: Vital Signs (12 hours) Temp Pulse Resp BP Pulse Ox 04/23/18 08:00 98.6 F 88 17 104/71 93 L 04/22/18 22:32 94 L 04/22/18 21:30 97.9 F 67 18 128/82 94 L Weight Weight 73.754 kg Result Diagrams: 04/22/18 16:36 04/22/18 16:53 Phys Exam - Physical Examination Constitutional: NAD HEENT: PERRLA, moist MMs, sclera anicteric Cardiovascular: RRR, no significant murmur Gastrointestinal: soft, no distention, positive bowel sounds tender in rid mid quadrant Neurological: non-focal, moves all 4 limbs Psychiatric: normal affect, A&O x 3 Skin: no rash, cap refill <2 seconds Dx/Plan (1) Cyst Code(s): [id number] - Status: Acute (2) Intractable abdominal pain Code(s): R10.9 - UNSPECIFIED ABDOMINAL PAIN Status: Acute (3) Vaginal discharge Code(s): N89.8 - OTHER SPECIFIED NONINFLAMMATORY DISORDERS OF VAGINA Status: Acute - Plan Plan: Intractable abdominal pain -suspected endometriosis, will obtain abdominal ultrasound to assess for involvement of cyst in c section scars -po ibuprofen -see if tolerates diet -consider outpt meter tester polyphase referral for endometriosis 1 cm ventral peritoneal cyst - see above Vaginal discharge (BV vs STD) - VP3 and GC/Chl pending - s/p zpack, ceftriaxone, flagyl Discussed with Dr. Brooks Addendum - Attending - Attending Attestation Date/Time: 04/23/18 [id number] I personally evaluated the patient and discussed the management with Dr. Cabrera I agree with the History, Examination, Assessment and Plan documented above with any addition or exceptions noted below.Pain out of proportion to clinical exam tender RLQ no rebound etiologies considered SBO,ruptured ovarian cyst, ovarian torsion,appendicitis, small ventral abdominal wall hernia, superficial nerve entrapment s/p c/s, PID and endometriosis. sono today and ask General surgery opinion before d/c cyst of questionable significance. CT scan has ruled out significant pathology,
[2018-04-23] MEDS ORDERED: Ibuprofen 600 MG TAB PO PRN (09:24)
[2018-04-23] MEDS ORDERED: Ketorolac Tromethamine 30 MG/ML VIAL IVP PRN (10:15)
[2018-04-23] MEDS ORDERED: Morphine 2 MG/ML SYRINGE SLOW IVP SCH (11:15)
--- NOTE | 2018-04-23 13:21 | ULT ---
ABDOMINAL SONOGRAM LIMITED: HISTORY: Right lower quadrant pain. Abnormal CT scan with cystic lesion. FINDINGS: Sonographic evaluation of the right lower quadrant in region of appendix shows o abscess or free flui d. On the recent CT, the appendix descended to the lower mid pelvis and would be obscured by bowel g as. Immediately deep to the medial aspect of the lower right rectus muscle, a well-circumscribed oval and echoic mass with good posterior acoustic enhancement is again visualized. It measures up to 1.3 x 1 .0 x 0.8 cm diameters and correlates with the lesion on recent CT. No solid components are apparent. IMPRESSION: Small benign-appearing cyst immediately deep to the lower margin of the right rectus abdominus muscle . No aggressive characteristics. 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 No evidence of appendicitis. POS: [facility]
[2018-04-23 15:50] VITALS: BP 108/72; TEMP 98.1
--- NOTE | 2018-04-23 23:28 | CON ---
DATE OF CONSULTATION: 04/23/2018 CHIEF COMPLAINT: Abdominal pain. HISTORY OF PRESENT ILLNESS: This is a pleasant 28-year-old, para 2, who presented yesterday for intractable abdominal pain. She reports that she has had this pain intermittently for the last 2 months, but has experienced similar pain in the past. She has been seen multiple times in the clinic and Emergency Department. She has had multiple rounds of antibiotics including Flagyl, Rocephin and azithromycin with no improvement. She reports that the pain has been worsening over time and is painful with intercourse, urination and defecation. She is tolerating p.o. at this time. She denies any current vaginal bleeding or discharge. Pain improved with NSAIDs and Ultram. The pain is described as cramping and pressure with intermittent sharp episodes. COOK CHIEF HISTORY She reports that she does have painful menstrual cycles and always has, but does not feel that this pain necessarily gets worse with menstrual cycles. Her last menstrual period was 03/30/2018. She has regular cycles every month. She previously started oral contraceptive pills, but self discontinued them due to the pain she was having and was afraid that it was associated with the pill. The patient had felt that she had trouble conceiving in the past without using any form of contraception. She does have plans for future childbearing. She is getting in June and wishes to have at least one more child with her new , but the timing is uncertain at this point. The patient reports that she had an abnormal Pap smear and is to undergo a LEEP procedure next week. PAST MEDICAL HISTORY: History of kidney stones during her last . PAST SURGICAL HISTORY: x2. MEDICATIONS: Ibuprofen. ALLERGIES: NO KNOWN DRUG ALLERGIES. SOCIAL HISTORY: Negative for tobacco, alcohol, or drug abuse. FAMILY HISTORY: Significant for breast cancer in her grandmother, cervical cancer in her mother and bladder cancer in her grandfather. REVIEW OF SYSTEMS: Negative for head, eyes, ears, nose, throat, cardiovascular, respiratory, GI, , neuropsych, musculoskeletal, skin or constitutional symptoms other than mentioned above. PHYSICAL EXAMINATION: VITAL SIGNS: Blood pressure 108/72, pulse 75, respiratory rate 19, temperature 98.1. GENERAL: Awake, alert, in no acute distress. CHEST: Nonlabored breathing. ABDOMEN: Soft, diffusely tender to palpation. No guarding. No rebound. No masses palpable. PELVIC: Deferred. EXTREMITIES: No edema. LABORATORY DATA: WBC 9.4, hemoglobin 15.1, hematocrit 44.9, platelets 251,000, neutrophils 60%. Chemistry unremarkable. IMAGING: Abdomen pelvis CT revealed no major pathology identified. There is an incidental finding of a tiny cystic structure in the right paramedian peritoneal cavity of uncertain etiology. Pelvic ultrasound revealed a uterus measuring 8.6 x 4 x 6 cm. Endometrial stripe measuring 1.1 cm. No fibroids. No free fluid. Ovaries normal size with no masses and good blood flow demonstrated bilaterally. There is a 1 x 0.5 cm cystic structure at the upper cervix and lower uterine segment that may represent a nabothian cyst versus early first trimester gestational sac and small amount of fluid within the endocervical canal. ASSESSMENT AND PLAN: A 28-year-old, para 2 with chronic abdominal pelvic pain. Given the description of her symptoms, I am suspicious of a diagnosis of endometriosis. I discussed that this could not be definitively diagnosed without surgery and pathologic specimen, but could be treated with continuous oral contraceptive pills. I would recommend following up at [facility] for further workup and management. Of note, she did have a negative test on the . The patient is willing to try continuous oral contraceptive pills until she is ready to try to conceive. I recommend taking scheduled ibuprofen until her pain can be better controlled long-term. The patient is happy with this plan and a referral will be sent to [facility]. Job ID: [id number] MTDD
--- NOTE | 2018-04-24 00:24 | CON ---
DATE OF CONSULTATION: HISTORY OF PRESENT ILLNESS: Ms. Carmen Leslie is a 28-year-old pleasant female, status post , April 2017. 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 She is very active. After a , she recovered well, was pain free, working. Over the last 2 months, she has had lower pelvic pain radiating to her groins, thighs and it radiates straight through to her back. She complains of painful intercourse. She has been treated empirically for PID. This has not helped her symptoms at all. She was admitted on this occasion by the family practice service. She has had an STD workup in the past as an outpatient, it is negative. She reports that she is in a monogamous relationship. She continues to have pain. On admission, her white count is 9, hemoglobin 15. Comprehensive metabolic profile normal. The patient since admission has had abdominal ultrasound, it is unremarkable. Abdomen and pelvis CAT scan does not reveal any significant findings. She has what seems to be a small cyst in her lower right rectus sheath incidental, probably not related to any of her findings. This is a 1-cm round hypodense lesion without adjacent fat stranding and is definitely cystic and benign. Pelvic ultrasound recently obtained is unremarkable. ALLERGIES: NONE. SOCIAL HISTORY: Tobacco, none. Alcohol, none. MEDICATIONS: vitamins, labetalol 100 mg b.i.d., ibuprofen, tramadol. PAST SURGICAL HISTORY: . PAST MEDICAL HISTORY: Noncontributory. REVIEW OF SYSTEMS: Ten-point noncontributory. PHYSICAL EXAMINATION: VITAL SIGNS: Height 5 feet 4 inches, 162 pounds, 27 BMI, temperature 98.1, pulse 75, blood pressure 102/72. HEAD, EARS, EYES, NOSE AND THROAT: Unremarkable. LUNGS: Clear to auscultation. CARDIAC: Regular rate and rhythm without murmur or gallop. ABDOMEN: Soft, flat, nondistended. EXTREMITIES: Unremarkable. ASSESSMENT/PLAN: Pelvic pain of uncertain etiology. This does radiate to her back. She reports that during her recent cervical biopsy in the family practice office, this reproduced her symptoms. At this point, I would recommend consultation with gynecology hospitalist. I do not think I could offer here anything surgically that would benefit her, laparoscopy is certainly an option, but I do not believe that this would help her revealing significant findings. After gynecology hospitalist's consultation, if there is nothing could be found, I would recommend consulting Dr. Parish Cortez of Pain Management, who happens to be engineer operations and maintenance this weekend could see her. Call me pending hospitalist barge captain's consultation to discuss possible consultation with pain management, anesthesia. Job ID: [id number]
[2018-04-25 01:07] LABS: Chlamydia by PCR Not Detected (NotDetected); GC by PCR Not Detected (NotDetected)
--- NOTE | 2018-04-27 08:50 | DIS ---
DATE OF ADMISSION: 04/22/2018 DATE OF DISCHARGE: 04/23/2018 RESIDENT: Heidi Cabrera, PGY1 ADMITTING ATTENDING: Oskar Brooks MD DISCHARGE ATTENDING: Oskar Brooks MD CONSULTS: 1. General Surgery, Dr. Aguilar. 2. LATENT PRINT EXAMINER, Dr. Neda Oquendo. PROCEDURES: None. PRIMARY DIAGNOSES: Intractable abdominal pain, endometriosis vs. sacroilitiis SECONDARY DIAGNOSES: 1. History of nephrolithiasis. 2. section x2. DISCHARGE MEDICATIONS: 1. Ibuprofen 800 mg t.i.d. 2. Ultram 50 mg p.o. q.6 hours p.r.n. for breakthrough pain. 3. Zofran 4 mg sublingual q.6 hours p.r.n. for nausea. 4. Labetalol 100 mg p.o. b.i.d. 5. Acetaminophen 650 mg p.o. q.4 hours p.r.n. 6. vitamin. 7. Acyclovir 800 mg p.o. 8. Colace 100 mg p.o. b.i.d. Discontinued medications: None. IMAGIN. CT abdomen and pelvis: Round cystic structure in the right paramedian ventral peritoneal cavity, uncertain etiology and significance. 2. Abdominal ultrasound: Small benign-appearing cyst immediately to the lower margin of the right rectus abdominis muscle. No aggressive characteristics. It may be a congenital lymphatic cyst. No evidence of acute appendicitis. HISTORY OF PRESENT ILLNESS/HOSPITAL COURSE: A 28-year-old female presented to the ED for intractable abdominal pain. She had been having this for the past 2 months, localized to the mid abdomen and right lower quadrant intermittent. Two days ago , she developed emesis and dec po intake prompting her first ED visit for this. She was discharged home with pain meds and a PPI but continued to experience pain. She returned and was admitted for intractable abdominal pain. She also endorsed dyspareunia and dysmenorrhea.She has undergone extensive workup for this abdominal pain including pelvic US which have all been negative. In addition, she has had multiple fluid-negative GCT test. She has one partner and denies any history of STDs. During this stay, speculum examination was performed and was negative for acute examination based on observation. There was reported cervical motion tenderness. She had no clinical symptoms of bowel obstruction. CT abdomen and pelvis were unrevealing but showed a 1 cm cyst (findings detailed above). General surgery ruled out an acute abdomen and recommended no further intervention from their standpoint. 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 Recommended to see Dr. Cortez for pain management or for steroid injections at [facility]. OBGYN was consulted and in light of dyspareunia, dyschezia and dysmenorrea, there was a high suspicion for endometriosis. It was decided to send her home with scheduled ibuprofen 800 mg t.i.d. with tramadol for breakthrough pain. Also she was referred to [facility] for a diagnostic laparoscopy to evaluate for endometriosis. In the meantime, she was instructed to take monophasic OCP, Sprintec, everyday (without the placebo pills) to help with pain. DISPOSITION: Stable. DISCHARGE INSTRUCTIONS: 1. Location: Home. 2. Diet: Heart-healthy diet. 3. Activity: As tolerated. 4. Followup: a. Please follow up with Dr. Camilo in clinic for continued care and for scheduled LEEP on 04/27/2018. b. Please follow up with [facility] for suspected endometriosis. c. Please follow up with [facility] or Dr. Cortez for Pain Management pain mgmt for suspected sacroiliitis. d. Please follow up with physical therapy outpt Job ID: [id number] MTDD
== END 2018-04-23 18:43 | disposition home or self-care (01) ==
LOC: SCSER 16:12 → T4-B 18:10
PROVIDERS: ADMIT Family Medicine; ATTEND Family Medicine
DX: R10.30 Lower abdominal pain, unspecified (principal); N76.0 Acute vaginitis; K66.8 Other specified disorders of peritoneum; Z87.442 Personal history of urinary calculi; Z79.1 Long term (current) use of non-steroidal anti-inflammatories (NSAID); Z79.899 Other long term (current) drug therapy
CPT/HCPCS: 36415; 74177; 76705; 80053; 85025; 85652; 86140; 87480; 87491; 87510; 87591; 87660; 96372; 96374; 96375; 96376; G0378; J0696; J1885; J2001; J2270; J2405

== ENCOUNTER 2018-04-27 21:34 | Emergency (ER) | payer SELFPAY ==
[2018-04-27] MEDS ORDERED: Morphine 4 MG/ML Carpuject ONE (22:38)
[2018-04-27] MEDS ORDERED: Diazepam 5 MG TAB ONE (22:38)
[2018-04-27] MEDS ORDERED: Acetaminophen 500 MG TAB ONE (22:39)
== END 2018-04-27 23:38 | disposition home or self-care (01) ==
LOC: SCSER 21:34 → EEVIPCON 21:34 → SCSER 23:38
DX: M54.2 Cervicalgia (principal); C76.0 Malignant neoplasm of head, face and neck; Z87.891 Personal history of nicotine dependence; Z79.899 Other long term (current) drug therapy
CPT/HCPCS: 96372; J2270

== ENCOUNTER 2018-05-03 13:30 | Emergency (ER) | payer MEDICAID, SELFPAY ==
[2018-05-03] MEDS ORDERED: Ondansetron PF 4 MG/2 ML Vial ONE (14:18)
[2018-05-03] MEDS ORDERED: Haloperidol Lactate 5 MG/ML VIAL ONE (14:18)
[2018-05-03] MEDS ORDERED: Ketorolac Tromethamine 30 MG/ML VIAL ONE (14:18)
[2018-05-03 14:56] LABS: #Basophils 0.1 thou/uL (0.0-0.2); #Monocytes 0.4 thou/uL (0.11-0.59); #Neutrophils 5.8 thou/uL (1.40-6.50); %Basophils 0.7 % (0.0-1.0); %Eosinophils 0.2 % (0.0-10.0); %Lymphocytes 24.3 % (21.0-51.0); %Monocytes 5.1 % (0.0-10.0); %Neutrophils 69.6 % (42.0-75.0); Mean Corpuscular HGB CONC 32.9 g/dL (32.0-36.0); Mean Corpuscular Hemoglobin 29.2 pg (27.0-31.0); Mean Corpuscular Volume 88.8 fL (78.0-98.0); Mean Platelet Volume 8.4 fL (7.4-10.4); Platelet Count 185 thou/uL (130-400); RBC Distribution Width 11.7 % (11.5-14.5); Red Blood Cell (RBC) Count 5.13 mill/uL (4.20-5.40); White Blood Cell (WBC) Count 8.3 thou/uL (4.8-10.8)
[2018-05-03 15:03] LABS: BHCG - Serum Negative (NEGATIVE); Pregs Control Background? CLEAR/WHITE (CLR/WHITE); Pregs Control Bar Appear? YES (CONTROL BAR)
[2018-05-03 15:09] LABS: ALT (SGPT) 16 U/L (8-55); AST (SGOT) 21 U/L (5-34); Albumin 4.6 g/dL (3.5-5.0); Alkaline Phosphatase 43 U/L (40-150); Anion Gap 14 mmol/L (10-20); BUN (Urea Nitrogen) 6 mg/dL (7.0-18.7); Bilirubin, Total 0.4 mg/dL (0.2-1.2); Calc. Creatinine Clearance 0 mL/min (70-130); Calcium 9.5 mg/dL (7.8-10.44); Carbon Dioxide 20 mmol/L (22-29); Chloride 111 mmol/L (98-107); Estimated GFR-MDRD Greater than 90; Globulin 3.2 g/dL (2.4-3.5); Glucose 104 mg/dL (70-105); Lipase 10 U/L (8-78); Potassium 3.9 mmol/L (3.5-5.1); Protein, Total 7.8 g/dL (6.0-8.3); Sodium 141 mmol/L (136-145)
--- NOTE | 2018-05-03 16:03 | RAD ---
KUB AND UPRIGHT AND PA CHEST: Date: 05/03/18 HISTORY: Diffuse abdominal pain. Constipation. FINDINGS: Bowel gas pattern appears nonobstructed. No free air. No radiopaque calculi. Heart size and mediastinum are within normal limits. Lungs are clear of infiltrates. IMPRESSION: No acute findings. POS: [facility]
[2018-05-03 17:03] LABS: Bilirubin Negative (Negative); Blood, Urine Negative (Negative); Clarity Clear (Clear); Glucose, Urine (Dipstick) Negative (Negative); Leukocyte Negative (Negative); Nitrite Negative (Negative); Protein, Urine (Dipstick) Negative (Neg-Trace); Specific Gravity, Urine 1.015 (1.005-1.030); Urobilinogen 0.2 mg/dL (0.2-1.0)
[2018-05-03 17:20] LABS: Amphetamine Not Detected (NotDetected); Barbiturates Screen Not Detected (NotDetected); Benzodiazepine Screen Detected (NotDetected); Cocaine Metabolite Screen Not Detected (NotDetected); Medtox Control Line Valid? VALID (VALID); Methadone Not Detected (NotDetected); Methamphetamine Not Detected (NotDetected); Opiate Screen Detected (NotDetected); Oxycodone Screen Not Detected (NotDetected); Phencyclidine (PCP) Not Detected (NotDetected); THC/Cannabinoid Screen Not Detected (NotDetected); Tricyclic Screen Not Detected (NotDetected)
[2018-05-03] MEDS ORDERED: Morphine 4 MG/ML VIAL ONE (17:22)
[2018-05-03] MEDS ORDERED: diphenhydrAMINE 50 MG/ML VIAL ONE (17:35)
== END 2018-05-03 17:33 | disposition home or self-care (01) ==
LOC: SCSER 13:30
DX: R10.9 Unspecified abdominal pain (principal); Z87.891 Personal history of nicotine dependence
CPT/HCPCS: 74022; 80053; 80306; 81003; 83690; 84703; 85025; 96361; 96372; 96374; 96375; J0500; J1200; J1630; J1885; J2270; J2405

== ENCOUNTER 2018-06-25 14:56 | Outpatient (CLI) | payer MEDICAID ==
--- NOTE | 2018-06-25 17:47 | ULT ---
PELVIC ULTRASOUND: Date: 06/25/18 HISTORY: Pelvic pain. Patient has had two prior C-sections. TECHNIQUE: Multiplanar Khoury scale and color Doppler images were obtained in a pelvic ultrasound. Spectral analys is of the Doppler waveforms of the ovaries were performed. FINDINGS: The uterus is normal in size and appearance without focal abnormality other than the scar i n the anterior aspect of the uterus. The endometrial stripe is normal in thickness, measuring 6.0 mm. There appears to be a small cyst in the cervix measuring 7.0 mm in size, which likely represents a n abothian cyst. No free fluid is seen in the pelvis. Both ovaries are normal in size and appearance, and demonstrate normal internal flow. A dominant follicle is seen in the left ovary measuring 1.7 cm in size. IMPRESSION: Nabothian cyst; otherwise unremarkable exam. POS: [facility]
== END 2018-06-25 14:57 | disposition home or self-care (01) ==
LOC: ULT 14:56
PROVIDERS: ATTEND Obstetrics & Gynecology
DX: R10.2 Pelvic and perineal pain (principal); N88.8 Other specified noninflammatory disorders of cervix uteri
CPT/HCPCS: 76856